=== PATIENT | female | born 1980 | race Caucasian/White ===

== ENCOUNTER 2016-10-14 14:02 | Emergency (ER) | payer OTHER ==
[2016-10-14] MEDS ORDERED: HYDROmorphone HCL 1 MG/ML SYR ONE ×3 (14:36→16:59)
[2016-10-14] MEDS ORDERED: ONDANSETRON HCL 4 MG/2 ML VIAL ONE (14:37)
[2016-10-14 15:07] LABS: BASOPHIL# 0.1 X 10^3uL (0.0-0.1); BASOPHILS 1.2 % (0.0-2.0); EOSINOPHILS 2.9 % (0.0-6.0); EOSINOPHILS# 0.2 X 10^3uL (0.0-0.4); HEMATOCRIT 36.3 % (36.0-48.0); HEMOGLOBIN 11.8 g/dL (12.0-16.0); LYMPHOCYTES 40.3 % (20.0-40.0); LYMPHOCYTES# 2.2 X 10^3uL (0.8-3.8); MEAN CELL VOLUME 81.3 fL (84.0-102.0); MEAN CORPUS. HGB CONCENTRATION 32.4 g/dL (32.0-36.0); MEAN CORPUSCULAR HEMOGLOBIN 26.4 pg (29.0-35.0); MEAN PLATELET VOLUME 6.6 fL (7.4-10.4); MONOCYTES 5.9 % (2.0-10.0); MONOCYTES# 0.3 X 10^3uL (0.2-1.0); NEUTROPHILS 49.7 % (54.0-75.0); NEUTROPHILS# 2.8 X 10^3uL (2.6-6.7); PLATELET COUNT 450 X 10^3uL (130-440); RED BLOOD COUNT 4.46 X 10^6uL (4.20-6.10); RED CELL DISTRIBUTION WIDTH 14.3 % (11.5-14.5); WHITE BLOOD COUNT 5.6 X 10^3uL (3.9-10.7)
[2016-10-14 15:18] LABS: ALKALINE PHOSPHATASE 83 U/L (38-126); ALT 37 U/L (9-52); AST 26 U/L (14-36); BILIRUBIN, DIRECT 0.3 mg/dL (0.0-0.4); BILIRUBIN, TOTAL 0.5 mg/dL (0.2-1.3); BLOOD UREA NITROGEN 11 mg/dL (7-17); CALCIUM 8.9 mg/dL (8.4-10.2); CHLORIDE 99 mmol/L (98-107); CREATININE 0.6 mg/dL (0.5-1.0); EST GLOMERULAR FILTRATION RATE > 60 mL/min; LIPASE 32 U/L (23-300); POTASSIUM 3.9 mmol/L (3.5-5.1); SODIUM 137 mmol/L (137-145); TOTAL PROTEIN 7.2 g/dL (6.3-8.2)
[2016-10-14 15:32] LABS: GLUCOSE 259 mg/dL (70-100)
[2016-10-14 15:52] LABS: MAGNESIUM 1.7 mg/dL (1.6-2.3)
--- NOTE | 2016-10-14 18:22 | ER PHYSICIAN DOCUMENTATION ---
Physician Documentation [facility] Name:Ximena Frank Age:36 yrs Sex:Female :1980 Arrival Date:10/14/2016 Time:14:02 Bed4 Private MD:Bertrand Yang ED, John Disposition: 10/14/16 15:44 Discharged to Home/Self Care. Impression: Abdominal Pain, Epigastric, Dehydration. - Condition is Good. - Discharge Instructions: ABDOMINAL PAIN, Unknown Cause, (Female). - Medical Reconciliation form form. - Follow up: Bertrand Yang MD; When: 4- 6 days; Reason: Continuance of care. - Problem is new. - Symptoms have improved. HPI: 10/14 15:00 This 36 yrs old Female presents to ER via Private Vehicle with complaints of jm Abdominal Pain, High Blood Sugar. 15:00 The patient presents with abdominal pain in the epigastric area. The patient has jm experienced similar episodes in the past. 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 Humalog Sub-Q 2. [place] Oral 3. tujeo 4. Flexeril Oral 5. Vitamin D Oral - PMHx: DIABETES - IDDM; connective tissue disease; Abdominal Pain, Periumbilical (September 17, 2016); Dehydration (September 17, 2016); Hyperglycemia (September 17, 2016); Hypomagnesemia (October 03, 2016); - PSHx: TONSILLECTOMY; APPENDECTOMY; HERNIA REPAIR; - Tetanus: < 10 years. - Ebola Screening: : Patient negative for fever greater than or equal to 101.5 degrees Fahrenheit, and additional compatible Ebola Virus Disease symptoms. Patient denies exposure to infectious person. Patient denies travel to an Ebola-affected area in the 21 days before illness onset. No symptoms or risks identified at this time. . - Immunization history: Pneumococcal vaccine is up to date, Flu Vaccine < 1 year. - Social history: Smoking status: Patient states was never smoker of tobacco. Patient/guardian denies using alcohol, marijuana. ROS: 15:00 Abdomen/GI: Positive for abdominal pain, nausea, vomiting. jm 15:00 Neuro: Negative for dizziness, weakness. Exam: 15:00 Constitutional: The patient appears alert, awake, comfortable. jm 15:00 Respiratory: Respirations: normal, Breath sounds: are normal. 15:00 Abdomen/GI: Bowel sounds: normal, Palpation: mild abdominal tenderness, in the epigastric area. 15:00 Neuro: Mentation: is normal, Memory: is normal. 15:00 Psych: Behavior/mood is pleasant, cooperative, Affect is calm. Vital Signs: 14:00 BP 111 / 61; Pulse 60; Resp 18; Temp 97.6; Pulse Ox 88% on R/A; Weight 61.23 kg; Height sj 5 ft. 1 in. (154.94 cm); Pain 9/10; 14:30 BP 123 / 83; Pulse 76; Pulse Ox 95% on 2 lpm NC; sj 15:00 BP 107 / 75; Pulse 75; Pulse Ox 96% on 2 lpm NC; sj 15:30 BP 105 / 65; Pulse 71; Pulse Ox 92% on 2 lpm NC; Pain 8/10; sj 16:12 Pain 8/10; sj 16:30 BP 100 / 56; Pulse 75; Pulse Ox 100% on 2 lpm NC; sj 17:30 BP 108 / 59; Pulse 70; Pulse Ox 91% on R/A; Pain 4/10; sj 14:00 Body Mass Index 25.51 (61.23 kg, 154.94 cm) MDM: 14:11 Patient medically screened. 15:00 Differential diagnosis: non-specific abd pain. Data reviewed: vital signs, nurses notes, old medical records, lab test result(s), and as a result, I will discharge patient. Counseling: I had a detailed discussion with the patient and/or guardian regarding: the historical points, exam findings, and any diagnostic results supporting the discharge/admit diagnosis, the need for outpatient follow up, with the patient's primary care provider. 10/14 15:10 Order name: CBC AUTO DIF, MDIF/RMOR IF IND; Complete Time: 18:44 EDMS 10/14 15:25 Order name: INFLUENZA A/B; Complete Time: 15:26 EDMS 10/14 15:33 Order name: BASIC METABOLIC PANEL; Complete Time: 18:44 EDMS 10/14 15:33 Order name: HEPATIC PANEL; Complete Time: 18:44 EDMS 10/14 15:33 Order name: LIPASE; Complete Time: 18:44 EDMS 10/14 15:55 Order name: MAGNESIUM; Complete Time: 18:44 EDMS 02 14:12 Order name: NPO; Complete Time: 15:03 Dispensed Medications: 14:50 Drug: NS 0.9% 1000 ml; Route: IV; Rate: bolus; Site: left subclavian; sj 16:13 Follow up: IV Status: Completed infusion; IV Intake: 1000ml sj 14:51 Drug: Dilaudid 1 mg; Route: IVP; Site: left subclavian; sj 16:12 Follow up: Pain 8/10 Adult; Response: Pain is decreased sj 14:53 Drug: Zofran 4 mg; Route: IVP; Infused Over: 2 mins; Site: left subclavian; sj 16:12 Follow up: Response: Nausea unchanged sj 14:55 Drug: Phenergan 12.5 mg; Route: IVP; Site: left subclavian; sj 16:12 Follow up: Response: Nausea unchanged sj 16:00 Drug: Dilaudid 1 mg; Route: IVP; Site: left subclavian; sj 16:59 Follow up: Response: Pain is unchanged, physician notified sj 16:02 Drug: Phenergan 12.5 mg; Route: IVP; Site: left subclavian; sj 16:59 Follow up: Response: Nausea is decreased sj 16:11 Drug: NS 0.9% 1000 ml; Route: IV; Rate: bolus; Site: left subclavian; sj 17:40 Follow up: IV Status: Completed infusion; IV Intake: 1000ml sj 16:55 Drug: Dilaudid 1 mg; Route: IVP; Site: left subclavian; sj 17:40 Follow up: Response: Pain is decreased Point of Care Testing: Blood Glucose: 14:30 Blood Glucose: 253 mg/dL; sj Urine Dip: 18:17 pH: 5.5; ; Specific [place]: 1.010; Ketones: Negative; Glucose: Negative; Protein: sj Negative; Leukocytes: Negative; Nitrite: Negative ; Blood: Negative; Bilirubin: Negative ; Urobilinogen: Normal Ranges: Critical Glucose Levels:Adult <50 mg/dl or >400 mg/dl <40 mg/dl or >180 mg/dl Signatures: Jason Matthews MD MD jm Janzen, Sarah sj
--- NOTE | 2016-10-14 18:22 | ER NURSING DOCUMENTATION ---
Nurse's Notes [facility] Name:Ximena Frank Age:36 yrs Sex:Female :1980 Arrival Date:10/14/2016 Time:14:02 Bed4 Private MD:Bertrand Yang Diagnosis:Abdominal Pain, Epigastric;Dehydration Presentation: 10/14 14:00 Notified ED Physician of patient's arrival and CC Byron Conner notified. sj 14:23 Acuity: SUMI 3 sj 15:03 Presenting complaint: Patient states: feeling ill for several days, tachycardic - took sj metoprolol, blood sugars 300's yesterday, 253 today. Feeling dizzy , severe epigastric pain, low grade fever in 100's, nausea when attempting to drink, dry lingering cough, poor appetite. Exposed to family with flu, denies muscle aches. 15:08 Transition of care: Home. Risk considerations: patient denies pain radiation to back or sj syncopal episode. 15:08 Method Of Arrival: Private Vehicle sj Triage Assessment: 15:14 General: Appears uncomfortable, Behavior is cooperative, pleasant. Pain: Complains of sj pain in epigastric area Pain currently is 9 out of 10 on a pain scale. Neuro: Level of Consciousness is awake, alert, Oriented to person, place, time, event. Cardiovascular: Capillary refill < 3 seconds. Respiratory: Airway is patent Respiratory effort is even, unlabored, Respiratory pattern is regular. GI: Abdomen is flat, Reports upper abdominal pain, anorexia, intolerance of fluids, intolerance of food, nausea. 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 Humalog Sub-Q 2. [place] Oral 3. tujeo 4. Flexeril Oral 5. Vitamin D Oral - PMHx: DIABETES - IDDM; connective tissue disease; Abdominal Pain, Periumbilical (September 17, 2016); Dehydration (September 17, 2016); Hyperglycemia (September 17, 2016); Hypomagnesemia (October 03, 2016); - PSHx: TONSILLECTOMY; APPENDECTOMY; HERNIA REPAIR; - Tetanus: < 10 years. - Ebola Screening: : Patient negative for fever greater than or equal to 101.5 degrees Fahrenheit, and additional compatible Ebola Virus Disease symptoms. Patient denies exposure to infectious person. Patient denies travel to an Ebola-affected area in the 21 days before illness onset. No symptoms or risks identified at this time. . - Immunization history: Pneumococcal vaccine is up to date, Flu Vaccine < 1 year. - Social history: Smoking status: Patient states was never smoker of tobacco. Patient/guardian denies using alcohol, marijuana. Screenin:17 Infectious Disease Risk None. Abuse screen: Denies threats or abuse. Denies injuries sj from another. Nutritional screening: No deficits noted. Assessment: 17:40 Reassessment: Patient states symptoms have improved. Vital Signs: 14:00 BP 111 / 61; Pulse 60; Resp 18; Temp 97.6; Pulse Ox 88% on R/A; Weight 61.23 kg; Height 5 ft. 1 in. (154.94 cm); Pain 9/10; 14:30 BP 123 / 83; Pulse 76; Pulse Ox 95% on 2 lpm NC; sj 15:00 BP 107 / 75; Pulse 75; Pulse Ox 96% on 2 lpm NC; sj 15:30 BP 105 / 65; Pulse 71; Pulse Ox 92% on 2 lpm NC; Pain 8/10; sj 16:12 Pain 8/10; sj 16:30 BP 100 / 56; Pulse 75; Pulse Ox 100% on 2 lpm NC; sj 17:30 BP 108 / 59; Pulse 70; Pulse Ox 91% on R/A; Pain 4/10; sj 14:00 Body Mass Index 25.51 (61.23 kg, 154.94 cm) ED Course: 14:04 Patient arrived in ED. ama 14:05 Bertrand Yang MD is Private Physician. ama 14:11 Jason Matthews MD is Attending Physician. adrlyn 14:23 Missy Ott is Primary Nurse. 14:23 Triage completed. 15:17 Accessed Port-a-Cath using accessed w/ # 20 Munguia needle, sterile technique, per hospital protocol. Oxygen Oxygen administration via nasal cannula @ 2L/min. 15:17 Valuables Given to family. Patient has correct armband on for positive identification. sj Placed in gown. Bed in low position. Call light in reach. Side rails up X2. 15:44 Bertrand Yang MD is Referral Physician. 17:40 Discontinued IV bleeding controlled, pressure dressing applied, No redness/swelling at sj site. flushed with 10ml NS and 300 units heparin before port untapped. Administered Medications: 14:50 Drug: NS 0.9% 1000 ml; Route: IV; Rate: bolus; Site: left subclavian; sj 16:13 Follow up: IV Status: Completed infusion; IV Intake: 1000ml sj 14:51 Drug: Dilaudid 1 mg; Route: IVP; Site: left subclavian; sj 16:12 Follow up: Pain 8/10 Adult; Response: Pain is decreased sj 14:53 Drug: Zofran 4 mg; Route: IVP; Infused Over: 2 mins; Site: left subclavian; sj 16:12 Follow up: Response: Nausea unchanged sj 14:55 Drug: Phenergan 12.5 mg; Route: IVP; Site: left subclavian; sj 16:12 Follow up: Response: Nausea unchanged sj 16:00 Drug: Dilaudid 1 mg; Route: IVP; Site: left subclavian; sj 16:59 Follow up: Response: Pain is unchanged, physician notified sj 16:02 Drug: Phenergan 12.5 mg; Route: IVP; Site: left subclavian; sj 16:59 Follow up: Response: Nausea is decreased sj 16:11 Drug: NS 0.9% 1000 ml; Route: IV; Rate: bolus; Site: left subclavian; sj 17:40 Follow up: IV Status: Completed infusion; IV Intake: 1000ml sj 16:55 Drug: Dilaudid 1 mg; Route: IVP; Site: left subclavian; sj 17:40 Follow up: Response: Pain is decreased sj Point of Care Testing: Blood Glucose: 14:30 Blood Glucose: 253 mg/dL; sj Urine Dip: 18:17 pH: 5.5; ; Specific [place]: 1.010; Ketones: Negative; Glucose: Negative; Protein: sj Negative; Leukocytes: Negative; Nitrite: Negative ; Blood: Negative; Bilirubin: Negative ; Urobilinogen: Normal Ranges: Intake: 16:13 IV: 1000ml; Total: 1000ml. sj 17:40 IV: 1000ml; Total: 2000ml. Outcome: 15:44 Discharge ordered by . darlyn 17:45 Discharged to home 17:45 Condition: improved 17:45 Instructed on discharge instructions, follow up and referral plans. Demonstrated understanding of instructions. 18:22 Patient left the ED. 10/15 10:21 Discharge F/U Call: Unable to reach: no answer nf Signatures: Lyn Matthews RN RN Jason Sky MD MD jm Averdick, Andrew, Reg Reg Missy Zafar
== END 2016-10-14 18:22 | disposition home or self-care (01) ==
LOC: ER 14:02
DX: R10.13 Epigastric pain (principal); E86.0 Dehydration; M35.8 Other specified systemic involvement of connective tissue; E10.65 Type 1 diabetes mellitus with hyperglycemia; R11.2 Nausea with vomiting, unspecified
CPT/HCPCS: 80048; 80076; 83690; 83735; 85025; 87449; 96361; 96374; 96375; 96376; 99284; J1170; J1642; J2405; J2550

== ENCOUNTER 2016-11-13 20:05 | Emergency (ER) | payer OTHER ==
[2016-11-13 20:58] LABS: BASOPHIL# 0.1 X 10^3uL (0.0-0.1); BASOPHILS 1.7 % (0.0-2.0); EOSINOPHILS 5.2 % (0.0-6.0); EOSINOPHILS# 0.2 X 10^3uL (0.0-0.4); HEMOGLOBIN 11.1 g/dL (12.0-16.0); LYMPHOCYTES 38.5 % (20.0-40.0); LYMPHOCYTES# 1.5 X 10^3uL (0.8-3.8); MEAN CELL VOLUME 81.2 fL (80.0-100.0); MEAN CORPUS. HGB CONCENTRATION 31.7 g/dL (32.0-36.0); MEAN CORPUSCULAR HEMOGLOBIN 25.8 pg (29.0-35.0); MEAN PLATELET VOLUME 6.9 fL (7.4-10.4); MONOCYTES 6.7 % (2.0-10.0); MONOCYTES# 0.3 X 10^3uL (0.2-1.0); NEUTROPHILS 47.9 % (54.0-75.0); NEUTROPHILS# 1.9 X 10^3uL (2.6-6.7); PLATELET COUNT 346 X 10^3uL (130-440); RED BLOOD COUNT 4.32 X 10^6uL (4.20-6.10); RED CELL DISTRIBUTION WIDTH 15.4 % (11.5-14.5)
[2016-11-13] MEDS ORDERED: HYDROmorphone HCL 1 MG/ML SYR ONE ×3 (21:02→23:24)
[2016-11-13 21:10] LABS: BLOOD UREA NITROGEN 7 mg/dL (7-17); CALCIUM 8.7 mg/dL (8.4-10.2); CHLORIDE 99 mmol/L (98-107); CREATININE 0.5 mg/dL (0.5-1.0); EST GLOMERULAR FILTRATION RATE > 60 mL/min; POTASSIUM 4.3 mmol/L (3.5-5.1); SODIUM 133 mmol/L (137-145)
[2016-11-13 21:12] LABS: GLUCOSE 297 mg/dL (70-100)
--- NOTE | 2016-11-13 23:43 | ER NURSING DOCUMENTATION ---
Nurse's Notes [facility] Name:Ximena Frank Age:36 yrs Sex:Female :1980 Arrival Date:11/13/2016 Time:20:05 Bed3 Private MD:Bertrand Yang Diagnosis:Abdominal Pain, Epigastric Presentation: 11/13 20:20 Presenting complaint: Patient states: Dizzy, nausea, fatigue, and chronic abd pain rs flare. FSBS at home was 300. Took long lasting insulin (Toujeo) but has not used Humalog. Took one dose of Phenergan this am. She has not had an episode of DKA since April 2016. 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 Transition of care: patient was not received from another setting of care. 20:20 Acuity: SUMI 3 rs 20:20 Method Of Arrival: Private Vehicle rs Triage Assessment: 20:30 General: Appears in no apparent distress, well developed, well nourished, well groomed, rs Behavior is cooperative, pleasant, Reports fatigue for 0-12 hours, Denies fever, chills. Pain: Complains of pain in chronic abdominal pain has flared up tonoc. No change in location or character. Neuro: No deficits noted. Level of Consciousness is awake, alert, Oriented to person, place, time, event, [place] Cont[employer] Atmosp[employer] Furnace are equal bilaterally Moves all extremities. Gait is steady, Speech is normal. Cardiovascular: No deficits noted. Capillary refill < 3 seconds Pulses are 3+ in left radial artery Chest pain is denied. Respiratory: No deficits noted. Respiratory effort is even, unlabored, Respiratory pattern is regular, symmetrical, Breath sounds are clear bilaterally. GI: Abdomen is non- distended Bowel sounds present X 4 quads. Abd is soft X 4 quads Abdomen is tender to palpation in right upper quadrant and right lower quadrant. Derm: No deficits noted. Skin is intact, is healthy with good turgor, Skin is pink, warm & dry. Skin temperature is warm. Musculoskeletal: No deficits noted. Circulation, motion, and sensation intact Capillary refill < 3 seconds. Historical: - Allergies: Mobic; Toradol; Cipro PO; Ceftin; Tramadol HCl; Ativan; Lactulose; Ceftriaxone Sodium; hydroxychloroquine sulfate; montelukast sodium; Fluconazole; QUINACRINE; mycophenolate mofetil; meloxicam; SILVER; Prednisone; - Home Meds: 1. Humalog Sub-Q 2. [place] Oral 3. toujeo insulin 4. Flexeril Oral 5. Vitamin D Oral - PMHx: DIABETES - IDDM; connective tissue disease; Abdominal Pain, Periumbilical (September 17, 2016); Dehydration (September 17, 2016); Hyperglycemia (September 17, 2016); Hypomagnesemia (October 03, 2016); Abdominal Pain, Epigastric (October 14, 2016); Dehydration (October 14, 2016); Dehydration (October 03, 2016); Hypomagnesemia (October 03, 2016); Abdominal Pain, Periumbilical (October 03, 2016); Vomiting - Dehydration (September 02, 2016); Diabetes Mellitus, Type 1 with Hyperglycemia (September 02, 2016); Abdominal Pain, Unspecified (September 02, 2016); Cellulitis of Face (April 02, 2016); CHRONIC PAIN; - PSHx: TONSILLECTOMY; APPENDECTOMY; HERNIA REPAIR; - Tetanus: unknown. - Ebola Screening: : Patient negative for fever greater than or equal to 101.5 degrees Fahrenheit, and additional compatible Ebola Virus Disease symptoms. Patient denies exposure to infectious person. Patient denies travel to an Ebola-affected area in the 21 days before illness onset. No symptoms or risks identified at this time. . - Immunization history: Unable to Obtain. - Social history: Smoking status: Patient states was never smoker of tobacco. Patient/guardian denies using alcohol. Screenin:57 Infectious Disease Risk None. Abuse screen: Denies threats or abuse. Nutritional rs screening: No deficits noted. Assessment: 21:57 See Triage Assessment done by same RN. rs Vital Signs: 20:30 BP 131 / 87; Pulse 99; Resp 22; Pulse Ox 94% on R/A; Pain 7/10; rs 21:00 BP 108 / 74; Pulse 75; Resp 20; Pulse Ox 95% on 2 lpm NC; Pain 6/10; rs 23:41 BP 122 / 63; Pulse 69; Resp 15; Temp 98.4; Pulse Ox 97% on R/A; Pain 2/10; mk4 ED Course: 20:06 Patient arrived in ED. em2 20:06 Bertrand Yang MD is Private Physician. em2 20:30 Notified ED Physician of patient's arrival and chief complaint. Bed in low position rs Call Light in Reach Gowned HOB Elevated Side rails up x1. Family accompanied patient. 20:33 Jason Matthews MD is Attending Physician. darlyn 21:23 Triage completed. rs 21:57 Valuables Remains with patient. Pulse Ox - RN Monitoring Only. Door closed. Noise rs minimized. Lights dimmed. 21:58 Accessed Port-a-Cath using accessed w/ # 20 Munguia needle, Clean & dry. Flushes easily. rs 22:03 Resting quietly. rs 22:54 Bertrand Yang MD is Referral Physician. darlyn Administered Medications: Completed: NS 0.9% 1000 ml IV at bolus once Completed: NS 0.9% 1000 ml IV at bolus once 20:45 Drug: NS 0.9% 1000 ml; Volume: 1000 ml; Route: IV; Rate: bolus; Infused Over: 45 mins; mk4 Site: left subclavian; Delivery: IVPB Tubing; 23:39 Follow up: IV Status: Completed infusion; Infusion discontinued; IV Intake: 1000ml mk4 21:05 Drug: Phenergan 12.5 mg; Route: IVP; Rate: 3 mg/min; Infused Over: 4 mins; Site: left rs subclavian; 21:30 Follow up: Response: Nausea is decreased rs 21:10 Drug: Dilaudid 1 mg; Route: IVP; Rate: 0.25 mg/min; Infused Over: 4 mins; Site: left rs subclavian; 21:30 Follow up: Response: Pain is decreased rs 23:10 Drug: Zofran 8 mg; Route: IVP; Rate: 8 bolus; Infused Over: 2 mins; Site: left mk4 subclavian; 23:10 Drug: Dilaudid 1 mg; Route: IVP; Rate: 1 bolus; Infused Over: 2 mins; Site: left mk4 subclavian; 23:40 Follow up: Response: No adverse reaction; Pain is decreased mk4 23:10 Drug: Phenergan 12.5 mg; Route: IVP; Rate: 12.5 bolus; Infused Over: 2 mins; Site: left mk4 subclavian; 23:40 Follow up: Response: No adverse reaction; Nausea is decreased mk4 23:10 Drug: Phenergan 12.5 mg; Route: IVP; Rate: 12.5 bolus; Infused Over: 2 mins; Site: left mk4 subclavian; 23:41 Follow up: Response: No adverse reaction; Nausea is decreased mk4 23:30 Drug: Dilaudid 1 mg; Route: IVP; Rate: 1 bolus; Infused Over: 2 mins; Site: left mk4 subclavian; 23:40 Follow up: Response: No adverse reaction; Pain is decreased mk4 23:39 CANCELLED (Other Intervention Used): Zofran 8 mg IVP once over 2 mins 4 Point of Care Testing: Blood Glucose: 20:20 Blood Glucose: 300 mg/dL; rs Ranges: Intake: 23:39 IV: 1000ml; Total: 1000ml. 4 Outcome: 23:04 Discharge ordered by MD. santizo 23:41 Discharged to home [facility] 23:41 Condition: improved 23:41 Discharge Assessment: Patient awake, alert and oriented x 3. No cognitive and/or functional deficits noted. Patient verbalized understanding of disposition instructions. 23:41 Discharge instructions given to patient, Instructed on discharge instructions, follow up and referral plans. Demonstrated understanding of instructions. 23:43 Patient left the ED. 4 Signatures: Chary Jordan RN RN Jason Simeon MD MD jm Meinking-reg, Wiliam 2 Donna Vasquez [facility]
--- NOTE | 2016-11-13 23:43 | ER PHYSICIAN DOCUMENTATION ---
Physician Documentation [facility] Name:Ximena Frank Age:36 yrs Sex:Female :1980 Arrival Date:11/13/2016 Time:20:05 Bed3 Private MD:Bertrand Yang ED, John Disposition: 11/13/16 23:04 Discharged to Home/Self Care. Impression: Abdominal Pain, Epigastric. - Condition is Good. - Discharge Instructions: ABDOMINAL PAIN, Unknown Cause, (Female). - Medical Reconciliation form form. - Follow up: Bertrand Yang MD; When: 2 - 3 days; Reason: Continuance of care. - Problem is new. - Symptoms have improved. HPI: 11/13 20:30 This 36 yrs old Female presents to ER via Private Vehicle with complaints of jm Abdominal Pain. 20:30 The patient presents with abdominal pain. Onset: The symptoms/episode began/occurred jm today. Associated signs and symptoms: Pertinent positives: vomiting. The patient has experienced similar episodes in the past. Historical: - Allergies: Mobic; Toradol; Cipro PO; Ceftin; Tramadol HCl; Ativan; Lactulose; Ceftriaxone Sodium; hydroxychloroquine sulfate; montelukast sodium; Fluconazole; QUINACRINE; mycophenolate mofetil; meloxicam; SILVER; Prednisone; - Home Meds: 1. Humalog Sub-Q 2. [place] Oral 3. toujeo insulin 4. Flexeril Oral 5. Vitamin D Oral - PMHx: DIABETES - IDDM; connective tissue disease; Abdominal Pain, Periumbilical (September 17, 2016); Dehydration (September 17, 2016); Hyperglycemia (September 17, 2016); Hypomagnesemia (October 03, 2016); Abdominal Pain, Epigastric (October 14, 2016); Dehydration (October 14, 2016); Dehydration (October 03, 2016); Hypomagnesemia (October 03, 2016); Abdominal Pain, Periumbilical (October 03, 2016); Vomiting - Dehydration (September 02, 2016); Diabetes Mellitus, Type 1 with Hyperglycemia (September 02, 2016); Abdominal Pain, Unspecified (September 02, 2016); Cellulitis of Face (April 02, 2016); CHRONIC PAIN; - PSHx: TONSILLECTOMY; APPENDECTOMY; HERNIA REPAIR; - Tetanus: unknown. - Ebola Screening: : Patient negative for fever greater than or equal to 101.5 degrees Fahrenheit, and additional compatible Ebola Virus Disease symptoms. Patient denies exposure to infectious person. Patient denies travel to an Ebola-affected area in the 21 days before illness onset. No symptoms or risks identified at this time. . - Immunization history: Unable to Obtain. - Social history: Smoking status: Patient states was never smoker of tobacco. Patient/guardian denies using alcohol. ROS: 11/14 09:25 Constitutional: Negative for fever. Constitutional: Positive for fatigue. Abdomen/GI: Positive for abdominal pain, nausea, vomiting. Neuro: Positive for weakness. Exam: 09:25 Constitutional: The patient appears alert, awake, comfortable. 09:25 Cardiovascular: Rate: normal, Rhythm: regular. 09:25 Respiratory: the patient does not display signs of respiratory distress, Respirations: normal. 09:25 Abdomen/GI: Bowel sounds: normal, Palpation: mild abdominal tenderness, in the epigastric area and umbilical area. Vital Signs: 11/13 20:30 BP 131 / 87; Pulse 99; Resp 22; Pulse Ox 94% on R/A; Pain 7/10; rs 21:00 BP 108 / 74; Pulse 75; Resp 20; Pulse Ox 95% on 2 lpm NC; Pain 6/10; rs 23:41 BP 122 / 63; Pulse 69; Resp 15; Temp 98.4; Pulse Ox 97% on R/A; Pain 2/10; mk4 MDM: 20:33 Patient medically screened. 11/14 09:26 Differential diagnosis: non-specific abd pain. Data reviewed: vital signs, nurses notes, old medical records, lab test result(s), and as a result, I will discharge patient. Counseling: I had a detailed discussion with the patient and/or guardian regarding: the historical points, exam findings, and any diagnostic results supporting the discharge/admit diagnosis, the need for outpatient follow up, with the patient's primary care provider. 11/13 21:02 Order name: CBC AUTO DIF, MDIF/RMOR IF IND; Complete Time: 22:36 EDMS 11/13 21:14 Order name: BASIC METABOLIC PANEL; Complete Time: 22:36 EDNE 11/13 20:38 Order name: Iv Saline Lock; Complete Time: 22:25 11/13 20:38 Order name: Pulse Ox Continuous; Complete Time: 22:25 11/13 20:38 Order name: Accucheck; Complete Time: 22:25 Dispensed Medications: Completed: NS 0.9% 1000 ml IV at bolus once Completed: NS 0.9% 1000 ml IV at bolus once 11/13 20:45 Drug: NS 0.9% 1000 ml; Volume: 1000 ml; Route: IV; Rate: bolus; Infused Over: 45 mins; mk4 Site: left subclavian; Delivery: IVPB Tubing; 23:39 Follow up: IV Status: Completed infusion; Infusion discontinued; IV Intake: 1000ml mk4 21:05 Drug: Phenergan 12.5 mg; Route: IVP; Rate: 3 mg/min; Infused Over: 4 mins; Site: left rs subclavian; 21:30 Follow up: Response: Nausea is decreased rs 21:10 Drug: Dilaudid 1 mg; Route: IVP; Rate: 0.25 mg/min; Infused Over: 4 mins; Site: left rs subclavian; 21:30 Follow up: Response: Pain is decreased rs 23:10 Drug: Zofran 8 mg; Route: IVP; Rate: 8 bolus; Infused Over: 2 mins; Site: left mk4 subclavian; 23:10 Drug: Dilaudid 1 mg; Route: IVP; Rate: 1 bolus; Infused Over: 2 mins; Site: left mk4 subclavian; 23:40 Follow up: Response: No adverse reaction; Pain is decreased mk4 23:10 Drug: Phenergan 12.5 mg; Route: IVP; Rate: 12.5 bolus; Infused Over: 2 mins; Site: left mk4 subclavian; 23:40 Follow up: Response: No adverse reaction; Nausea is decreased mk4 23:10 Drug: Phenergan 12.5 mg; Route: IVP; Rate: 12.5 bolus; Infused Over: 2 mins; Site: left mk4 subclavian; 23:41 Follow up: Response: No adverse reaction; Nausea is decreased mk4 23:30 Drug: Dilaudid 1 mg; Route: IVP; Rate: 1 bolus; Infused Over: 2 mins; Site: left mk4 subclavian; 23:40 Follow up: Response: No adverse reaction; Pain is decreased mk4 23:39 CANCELLED (Other Intervention Used): Zofran 8 mg IVP once over 2 mins mk4 Point of Care Testing: Blood Glucose: 20:20 Blood Glucose: 300 mg/dL; rs Ranges: Critical Glucose Levels:Adult <50 mg/dl or >400 mg/dl <40 mg/dl or >180 mg/dl Signatures: Chary Jordan RN RN rs Meyer, John, MD MD jm King, Melody 4
== END 2016-11-13 23:43 | disposition home or self-care (01) ==
LOC: ER 20:05
DX: E86.0 Dehydration (principal); R10.33 Periumbilical pain; R10.13 Epigastric pain; R11.2 Nausea with vomiting, unspecified; R53.83 Other fatigue; R53.1 Weakness; E10.65 Type 1 diabetes mellitus with hyperglycemia; E10.43 Type 1 diabetes mellitus with diabetic autonomic (poly)neuropathy; M35.8 Other specified systemic involvement of connective tissue; Z79.899 Other long term (current) drug therapy
CPT/HCPCS: 80048; 85025; 96361; 96374; 96375; 96376; 99284; J1170; J1642; J2550

== ENCOUNTER 2016-12-09 21:29 | Emergency (ER) | payer OTHER ==
[2016-12-09 22:00] LABS: BASOPHIL# 0.1 X 10^3uL (0.0-0.1); BASOPHILS 0.8 % (0.0-2.0); EOSINOPHILS 0.4 % (0.0-6.0); HEMATOCRIT 36.6 % (36.0-48.0); LYMPHOCYTES# 2.1 X 10^3uL (0.8-3.8); MEAN CELL VOLUME 81.4 fL (80.0-100.0); MEAN CORPUS. HGB CONCENTRATION 32.8 g/dL (32.0-36.0); MEAN CORPUSCULAR HEMOGLOBIN 26.7 pg (29.0-35.0); MONOCYTES 5.6 % (2.0-10.0); MONOCYTES# 0.4 X 10^3uL (0.2-1.0); NEUTROPHILS 62.2 % (54.0-75.0); NEUTROPHILS# 4.1 X 10^3uL (2.6-6.7); PLATELET COUNT 455 X 10^3uL (130-440); RED CELL DISTRIBUTION WIDTH 14.9 % (11.5-14.5); WHITE BLOOD COUNT 6.7 X 10^3uL (3.9-10.7)
[2016-12-09 22:11] LABS: BLOOD UREA NITROGEN 11 mg/dL (7-17); CALCIUM 9.6 mg/dL (8.4-10.2); CHLORIDE 98 mmol/L (98-107); CREATININE 0.6 mg/dL (0.5-1.0); EST GLOMERULAR FILTRATION RATE > 60 mL/min; SODIUM 132 mmol/L (137-145)
[2016-12-09 22:12] LABS: GLUCOSE 341 mg/dL (70-100)
[2016-12-09] MEDS ORDERED: HYDROmorphone HCL 1 MG/ML SYR ONE ×2 (22:18→23:08)
[2016-12-09] MEDS ORDERED: ONDANSETRON HCL 4 MG/2 ML VIAL ONE (23:08)
[2016-12-10] MEDS ORDERED: HYDROmorphone HCL 1 MG/ML SYR ONE (00:47)
--- NOTE | 2016-12-10 00:55 | ER PHYSICIAN DOCUMENTATION ---
Physician Documentation [facility] Name:Ximena Frank Age:36 yrs Sex:Female :1980 Arrival Date:12/09/2016 Time:21:29 Bed3 Private MD:Bertrand Yang ED, John Disposition: 12/10/16 00:35 Discharged to Home/Self Care. Impression: Vomiting - Dehydration, Abdominal Cramps. - Condition is Good. - Discharge Instructions: VOMITING (7y-Adult). - Medical Reconciliation form form. - Follow up: Bertrand Yang MD; When: 4- 6 days; Reason: Continuance of care. - Problem is new. - Symptoms have improved. HPI: 12/09 22:29 This 36 yrs old Female presents to ER via Private Vehicle with complaints of jm Abd pain n/v. 22:29 The patient presents with abdominal pain in the epigastric area. Onset: The jm symptoms/episode began/occurred today. The symptoms do not radiate. Associated signs and symptoms: Pertinent positives: nausea, vomiting. The symptoms are described as achy, dull. Modifying factors: the symptoms are aggravated by nothing. Severity of pain: in the emergency department the pain is a 8 / 10. The patient has experienced similar episodes in the past, and the symptoms today are exactly the same, to previous flare ups of this nature. . Historical: - Allergies: Mobic; Toradol; Cipro PO; Ceftin; Tramadol HCl; Ativan; Lactulose; Ceftriaxone Sodium; hydroxychloroquine sulfate; montelukast sodium; QUINACRINE; SILVER; Fluconazole; mycophenolate mofetil; meloxicam; Prednisone; - Home Meds: 1. Humalog Sub-Q 2. [place] Oral 3. toujeo insulin 4. Flexeril Oral 5. Vitamin D Oral - PMHx: DIABETES - IDDM; connective tissue disease; Abdominal Pain, Periumbilical (September 17, 2016); Abdominal Pain, Epigastric (October 14, 2016); Dehydration (September 17, 2016); Hyperglycemia (September 17, 2016); Hypomagnesemia (October 03, 2016); CHRONIC PAIN; Abdominal Pain, Epigastric (November 13, 2016); - PSHx: TONSILLECTOMY; APPENDECTOMY; HERNIA REPAIR; - Tetanus: < 10 years. - Ebola Screening: : Patient negative for fever greater than or equal to 101.5 degrees Fahrenheit, and additional compatible Ebola Virus Disease symptoms. - Immunization history: Flu Vaccine < 1 year. - Social history: Smoking status: Patient states was never smoker of tobacco. ROS: 22:34 Constitutional: Negative for fatigue, fever. 22:34 ENT: Positive for hoarseness. 22:34 Abdomen/GI: Positive for abdominal pain, nausea, vomiting. 22:34 Psych: Negative for anxiety, depression. Exam: 22:35 Constitutional: The patient appears alert, awake. 22:35 Cardiovascular: Rate: tachycardic, Rhythm: regular. 22:35 Respiratory: the patient does not display signs of respiratory distress, Breath sounds: are normal. 22:35 Abdomen/GI: Bowel sounds: normal, Palpation: mild abdominal tenderness, in the epigastric area and umbilical area. Vital Signs: 21:30 BP 127 / 84; Pulse 91; Resp 17; Temp 98.3(O); Pulse Ox 95% on R/A; Weight 58.97 kg; rh Height 5 ft. 2 in. (157.48 cm); 23:30 BP 123 / 82; Pulse 86; Resp 15; Pulse Ox 97% on R/A; rh 21:30 Body Mass Index 23.78 (58.97 kg, 157.48 cm) rh MDM: 21:51 Patient medically screened. 22:35 Differential diagnosis: non-specific abd pain. Data reviewed: vital signs, nurses notes, old medical records, lab test result(s), and as a result, I will discharge patient. Counseling: I had a detailed discussion with the patient and/or guardian regarding: the historical points, exam findings, and any diagnostic results supporting the discharge/admit diagnosis, lab results, the need for outpatient follow up, with the patient's primary care provider, a neurologist. Medication response: The patient's symptoms have improved, Dilaudid. 12/09 22:02 Order name: CBC AUTO DIF, MDIF/RMOR IF IND; Complete Time: 22:21 EDAL 12/09 22:12 Order name: BASIC METABOLIC PANEL; Complete Time: 22:21 EDAL 12/09 21:53 Order name: Pulse Ox Continuous; Complete Time: 21:54 12/09 21:53 Order name: Iv Saline Lock; Complete Time: 21:54 darlyn 12/09 21:53 Order name: Accucheck; Complete Time: 21:54 Dispensed Medications: 21:54 Drug: NS 0.9% 1000 ml; Route: IV; Rate: bolus; Site: left subclavian; rh 23:15 Follow up: IV Status: Completed infusion; IV Intake: 1000ml rh 22:01 Drug: Phenergan 12.5 mg; {Note: ADMISTERED INTO PORT.} Route: IVP; Site: left rh subclavian; 23:00 Follow up: Response: Nausea is decreased rh 22:10 Drug: Dilaudid 1 mg; Route: IVP; Site: left subclavian; rh 23:01 Follow up: Response: Pain is decreased rh 23:00 Drug: Zofran 4 mg; Route: IVP; Infused Over: 2 mins; Site: left subclavian; rh 23:52 Follow up: Response: Nausea is decreased rh 23:00 Drug: Dilaudid 1 mg; Route: IVP; Site: left antecubital; rh 23:52 Follow up: Response: Pain is decreased rh 23:16 Drug: NS 0.9% 1000 ml; Route: IV; Rate: bolus; Site: left subclavian; rh 12/10 00:45 Follow up: IV Status: Completed infusion; IV Intake: 1000ml rh 00:35 Drug: Phenergan 12.5 mg; Route: IVP; Site: left subclavian; rh 00:47 Follow up: Response: Nausea is decreased rh 00:35 Drug: Dilaudid 1 mg; Route: IVP; Site: left subclavian; rh 00:47 Follow up: Response: Pain is decreased rh 00:49 Drug: heparin Flush 500 units; Route: IVP; Site: left subclavian; rh 00:49 Follow up: Response: No adverse reaction rh Signatures: Jason Matthews MD MD jm Hofsess, Rachel rh
--- NOTE | 2016-12-10 00:55 | ER NURSING DOCUMENTATION ---
Nurse's Notes [facility] Name:Ximena Frank Age:36 yrs Sex:Female :1980 Arrival Date:12/09/2016 Time:21:29 Bed3 Private MD:Bertrand Yang Diagnosis:Vomiting - Dehydration;Abdominal Cramps Presentation: 12/09 21:30 Acuity: SUMI 3 21:54 Presenting complaint: Patient states: Pt has been feeling tired and run down since Tuesday. Today she became nauseated and wasn't able to stay hydrated. Transition of care: Home. 21:54 Method Of Arrival: Private Vehicle Triage Assessment: 21:56 General: Appears in no apparent distress, Behavior is cooperative. Pain: Denies pain. rh EENT: Oral mucosa is dry. Neuro: Level of Consciousness is awake, alert, obeys commands. Cardiovascular: Capillary refill < 3 seconds. Respiratory: Airway is patent. GI: Abdomen is non- distended Bowel sounds present X 4 quads. Abd is soft and non tender Reports anorexia, nausea, vomiting, since Tuesday. : No deficits noted. Derm: Skin is intact, is healthy with good turgor, Skin is pink, warm & dry. Historical: - Allergies: Mobic; Toradol; Cipro PO; Ceftin; Tramadol HCl; Ativan; Lactulose; Ceftriaxone Sodium; hydroxychloroquine sulfate; montelukast sodium; QUINACRINE; SILVER; Fluconazole; mycophenolate mofetil; meloxicam; Prednisone; - Home Meds: 1. Humalog Sub-Q 2. [place] Oral 3. toujeo insulin 4. Flexeril Oral 5. Vitamin D Oral - PMHx: DIABETES - IDDM; connective tissue disease; Abdominal Pain, Periumbilical (September 17, 2016); Abdominal Pain, Epigastric (October 14, 2016); Dehydration (September 17, 2016); Hyperglycemia (September 17, 2016); Hypomagnesemia (October 03, 2016); CHRONIC PAIN; Abdominal Pain, Epigastric (November 13, 2016); - PSHx: TONSILLECTOMY; APPENDECTOMY; HERNIA REPAIR; - Tetanus: < 10 years. - Ebola Screening: : Patient negative for fever greater than or equal to 101.5 degrees Fahrenheit, and additional compatible Ebola Virus Disease symptoms. - Immunization history: Flu Vaccine < 1 year. - Social history: Smoking status: Patient states was never smoker of tobacco. Screenin:58 Infectious Disease Risk None. Abuse screen: Denies threats or abuse. Denies injuries rh from another. Nutritional screening: No deficits noted. Assessment: 21:58 See Triage Assessment done by same RN. rh Vital Signs: 21:30 BP 127 / 84; Pulse 91; Resp 17; Temp 98.3(O); Pulse Ox 95% on R/A; Weight 58.97 kg; rh Height 5 ft. 2 in. (157.48 cm); 23:30 BP 123 / 82; Pulse 86; Resp 15; Pulse Ox 97% on R/A; rh 21:30 Body Mass Index 23.78 (58.97 kg, 157.48 cm) rh ED Course: 21:30 Patient arrived in ED. [facility] 21:30 Trisha Guerra is Primary Nurse. 21:30 Bertrand Yang MD is Private Physician. [facility] 21:30 Notified ED Physician of patient's arrival and chief complaint. Dr. Matthews notified. rh 21:31 Triage completed. rh 21:45 Accessed Medi-Port and blood collected. using accessed w/ # 20 [place] needle, sterile rh technique, per hospital protocol. Clean & dry. Dressing intact. Flushes easily. 21:51 Jason Matthews MD is Attending Physician. 21:58 Valuables Remains with patient Patient has correct armband on for positive rh identification. Placed in gown. Bed in low position. Call light in reach. Side rails up X 1. 07 00:33 Bertrand Yang MD is Referral Physician. darlyn Administered Medications: 04 21:54 Drug: NS 0.9% 1000 ml; Route: IV; Rate: bolus; Site: left subclavian; rh 23:15 Follow up: IV Status: Completed infusion; IV Intake: 1000ml rh 22:01 Drug: Phenergan 12.5 mg; {Note: ADMISTERED INTO PORT.} Route: IVP; Site: left rh subclavian; 23:00 Follow up: Response: Nausea is decreased rh 22:10 Drug: Dilaudid 1 mg; Route: IVP; Site: left subclavian; rh 23:01 Follow up: Response: Pain is decreased rh 23:00 Drug: Zofran 4 mg; Route: IVP; Infused Over: 2 mins; Site: left subclavian; rh 23:52 Follow up: Response: Nausea is decreased rh 23:00 Drug: Dilaudid 1 mg; Route: IVP; Site: left antecubital; rh 23:52 Follow up: Response: Pain is decreased rh 23:16 Drug: NS 0.9% 1000 ml; Route: IV; Rate: bolus; Site: left subclavian; rh 0407 00:45 Follow up: IV Status: Completed infusion; IV Intake: 1000ml rh 00:35 Drug: Phenergan 12.5 mg; Route: IVP; Site: left subclavian; rh 00:47 Follow up: Response: Nausea is decreased rh 00:35 Drug: Dilaudid 1 mg; Route: IVP; Site: left subclavian; rh 00:47 Follow up: Response: Pain is decreased rh 00:49 Drug: heparin Flush 500 units; Route: IVP; Site: left subclavian; rh 00:49 Follow up: Response: No adverse reaction rh Intake: 04 23:15 IV: 1000ml; Total: 1000ml. rh 04 00:45 IV: 1000ml; Total: 2000ml. rh Outcome: 00:35 Discharge ordered by . darlyn 00:54 Discharged to home ambulatory, with significant other. rh 00:54 Condition: improved 00:54 Discharge Assessment: Patient awake, alert and oriented x 3. No cognitive and/or functional deficits noted. Patient verbalized understanding of disposition instructions. 00:54 Discharge instructions given to patient, significant other, Instructed on discharge instructions, follow up and referral plans. Demonstrated understanding of instructions. 00:54 IV D/Filipe 00:54 Patient left the ED. rh Signatures: Jason Matthews MD MD jm Hofsess, Rachel Carlee Lara
== END 2016-12-10 00:54 | disposition home or self-care (01) ==
LOC: ER 21:29
DX: E86.0 Dehydration (principal); R11.2 Nausea with vomiting, unspecified; R10.13 Epigastric pain; R10.33 Periumbilical pain; E10.9 Type 1 diabetes mellitus without complications; M35.8 Other specified systemic involvement of connective tissue; Z79.899 Other long term (current) drug therapy
CPT/HCPCS: 80048; 85025; 96361; 96374; 96375; 96376; 99284; J1170; J1642; J2405; J2550

== ENCOUNTER 2017-01-19 21:03 | Emergency (ER) | payer OTHER ==
[2017-01-19] MEDS ORDERED: NORMAL SALINE 10 ML VIAL ONE (21:32)
[2017-01-19 21:46] LABS: BASOPHILS 0.9 % (0.0-2.0); EOSINOPHILS 2.8 % (0.0-6.0); EOSINOPHILS# 0.1 X 10^3uL (0.0-0.4); HEMATOCRIT 33.6 % (36.0-48.0); HEMOGLOBIN 11.4 g/dL (12.0-16.0); LYMPHOCYTES 52.3 % (20.0-40.0); LYMPHOCYTES# 2.4 X 10^3uL (0.8-3.8); MEAN CELL VOLUME 80.8 fL (80.0-100.0); MEAN CORPUS. HGB CONCENTRATION 33.9 g/dL (32.0-36.0); MEAN CORPUSCULAR HEMOGLOBIN 27.4 pg (29.0-35.0); MONOCYTES 7.4 % (2.0-10.0); MONOCYTES# 0.3 X 10^3uL (0.2-1.0); NEUTROPHILS 36.6 % (54.0-75.0); NEUTROPHILS# 1.6 X 10^3uL (2.6-6.7); RED BLOOD COUNT 4.16 X 10^6uL (4.20-6.10); RED CELL DISTRIBUTION WIDTH 13.5 % (11.5-14.5); WHITE BLOOD COUNT 4.4 X 10^3uL (3.9-10.7)
[2017-01-19] MEDS ORDERED: HYDROmorphone HCL 1 MG/ML SYR ONE ×3 (21:46→23:57)
[2017-01-19] MEDS ORDERED: ONDANSETRON HCL 4 MG/2 ML VIAL ONE ×2 (21:46→23:58)
[2017-01-19 21:48] LABS: BLOOD UREA NITROGEN 4 mg/dL (7-17); CALCIUM 8.5 mg/dL (8.4-10.2); CHLORIDE 98 mmol/L (98-107); CREATININE 0.5 mg/dL (0.5-1.0); EST GLOMERULAR FILTRATION RATE > 60 mL/min; GLUCOSE 281 mg/dL (70-100); POTASSIUM 3.2 mmol/L (3.5-5.1); SODIUM 136 mmol/L (137-145)
[2017-01-19 21:50] LABS: PLATELET COUNT 473 X 10^3uL (130-440)
[2017-01-19] MEDS ORDERED: POTASSIUM EFF 25 MEQ TABLET ONE (23:10)
--- NOTE | 2017-01-20 00:21 | ER PHYSICIAN DOCUMENTATION ---
Physician Documentation [facility] Name:Ximena Frank Age:36 yrs Sex:Female :1980 Arrival Date:01/19/2017 Time:21:03 Bed3 Private MD:Bertrand Yang EDmalikaJason Disposition: 01/19/17 23:05 Discharged to Home/Self Care. Impression: Abdominal Pain, Generalized, Dehydration. - Condition is Good. - Discharge Instructions: Abdomen - ABDOMINAL PAIN, Unknown Cause, (Female). - Medical Reconciliation form form. - Follow up: Bertrand Yang MD; When: recheck [place] ; Reason: Recheck today's complaints. - Problem is chronic. - Symptoms have improved. HPI: 01/19 21:30 This 36 yrs old Female presents to ER via Walk In with complaints of jm Dehydration. 21:30 The patient presents with abdominal pain in the epigastric area. Onset: The jm symptoms/episode began/occurred today. Associated signs and symptoms: Pertinent positives: vomiting. The patient has not experienced similar symptoms in the past. Pt here w typical sx. . Historical: - Allergies: Ampicillin; Toradol; Tramadol HCl; Ceftin; Plaquenil; Mobic; Lactulose; - Home Meds: 1. tujeo 2. Humalog Sub-Q 3. [place]ymb[place] oral 4. [place] Oral 5. metoprolol tartrate Oral - PMHx: Diabetes - IDDM; connective tissue disorder; - PSHx: Appendectomy; Cholecysectomy; port implant; - Tetanus: < 10 years. - Ebola Screening: : Patient denies exposure to infectious person. Patient denies travel to an Ebola-affected area in the 21 days before illness onset. . - Immunization history: Flu Vaccine < 1 year. - Social history: Smoking status: Patient states was never smoker of tobacco. Patient uses alcohol occasionally. - Code Status:: Full code. ROS: 23:00 Abdomen/GI: Positive for abdominal pain, nausea, vomiting. jm 23:00 All other systems are negative. Exam: 23:00 Constitutional: The patient appears alert, awake. jm 23:00 Cardiovascular: Rate: normal, Rhythm: regular. 23:00 Respiratory: the patient does not display signs of respiratory distress, Respirations: normal. 23:00 Abdomen/GI: Bowel sounds: normal, Palpation: moderate abdominal tenderness, in the epigastric area and umbilical area. Vital Signs: 21:08 BP 135 / 93; Pulse 101; Resp 17; Temp 98.6(O); Pulse Ox 93% on R/A; Weight 61.23 kg; rh Height 5 ft. 1 in. (154.94 cm); Pain 0/10; 22:50 BP 117 / 73; Pulse 91; Resp 20; Pulse Ox 94% on 2 lpm NC; Pain 8/10; lb 01/20 00:20 BP 100 / 71; Pulse 79; Resp 15; Pulse Ox 98% on R/A; Pain 6/10; lb 01/19 21:08 Body Mass Index 25.51 (61.23 kg, 154.94 cm) rh MDM: 01/19 21:25 Patient medically screened. 01/20 08:06 Differential diagnosis: non-specific abd pain. Data reviewed: vital signs, nurses notes, old medical records, lab test result(s), and as a result, I will discharge patient. Counseling: I had a detailed discussion with the patient and/or guardian regarding: the historical points, exam findings, and any diagnostic results supporting the discharge/admit diagnosis. Medication response: The patient's symptoms have resolved, Dilaudid. 01/19 21:49 Order name: BASIC METABOLIC PANEL [facility] 01/19 21:50 Order name: CBC AUTO DIF, MDIF/RMOR IF IND [facility] 01/19 22:18 Order name: HCG, SERUM [facility] 01/19 21:27 Order name: Iv Saline Lock; Complete Time: 21:31 01/19 21:27 Order name: Pulse Ox Continuous; Complete Time: 21:32 Dispensed Medications: 01/19 21:43 Drug: NS 0.9% 1000 ml; Route: IV; Rate: bolus; Site: left subclavian; lb 23:49 Follow up: IV Status: Completed infusion; IV Intake: 1000ml lb 21:43 Drug: Phenergan 12.5 mg; Route: IVP; Site: left subclavian; lb 23:16 Follow up: Response: Nausea is decreased lb 21:43 Drug: Dilaudid 1 mg; Route: IVP; Site: left subclavian; lb 23:16 Follow up: Response: Pain is decreased lb 21:43 Drug: Zofran 4 mg; Route: IVP; Infused Over: 2 mins; Site: left subclavian; lb 23:17 Follow up: Response: Nausea is decreased lb 22:49 Drug: NS 0.9% 1000 ml; Route: IV; Rate: bolus; Site: left subclavian; lb 23:49 Follow up: IV Status: Completed infusion; IV Intake: 1000ml lb 22:49 Drug: Phenergan 12.5 mg; Route: IVP; Site: left subclavian; lb 23:17 Follow up: Response: Nausea is decreased lb 22:50 Drug: Dilaudid 1 mg; Route: IVP; Site: left subclavian; lb 23:17 Follow up: Response: Pain is decreased lb 22:58 Drug: Potassium Effervescent Tablet 25 mEq; Route: PO; lb 23:16 Follow up: Response: No change in condition lb 23:48 Drug: Dilaudid 1 mg; Route: IVP; Site: left subclavian; lb 01/20 00:19 Follow up: Response: Pain is decreased lb 01/19 23:48 Drug: Zofran 4 mg; Route: IVP; Infused Over: 2 mins; Site: left subclavian; lb 01/20 00:19 Follow up: Response: Nausea is decreased lb Point of Care Testing: Blood Glucose: 01/19 21:08 Blood Glucose: 337 mg/dL; rh Ranges: Critical Glucose Levels:Adult <50 mg/dl or >400 mg/dl <40 mg/dl or >180 mg/dl Signatures: Jason Matthews MD MD jm Bollock, Lynda lb
--- NOTE | 2017-01-20 00:21 | ER NURSING DOCUMENTATION ---
Nurse's Notes [facility] Name:Ximena Frank Age:36 yrs Sex:Female :1980 Arrival Date:01/19/2017 Time:21:03 Bed3 Private MD:Bertrand Yang Diagnosis:Abdominal Pain, Generalized;Dehydration Presentation: 01/19 21:08 Acuity: SUMI 3 rh 21:10 Presenting complaint: Patient states: elevated glucose for past few days with nausea, lb decreased appetite. Transition of care: Home. 21:10 Method Of Arrival: Walk In 21:10 Notified ED Physician of Byron Conner notified. lb Triage Assessment: 21:13 General: Appears in no apparent distress, Behavior is cooperative. Pain: Denies pain. lb Historical: - Allergies: Ampicillin; Toradol; Tramadol HCl; Ceftin; Plaquenil; Mobic; Lactulose; - Home Meds: 1. tujeo 2. Humalog Sub-Q 3. Cymbalta oral 4. [place] Oral 5. metoprolol tartrate Oral - PMHx: Diabetes - IDDM; connective tissue disorder; - PSHx: Appendectomy; Cholecysectomy; port implant; - Tetanus: < 10 years. - Ebola Screening: : Patient denies exposure to infectious person. Patient denies travel to an Ebola-affected area in the 21 days before illness onset. . - Immunization history: Flu Vaccine < 1 year. - Social history: Smoking status: Patient states was never smoker of tobacco. Patient uses alcohol occasionally. - Code Status:: Full code. Screenin:14 Infectious Disease Risk None. Abuse screen: Denies threats or abuse. Denies injuries lb from another. Nutritional screening: No deficits noted. Assessment: 21:14 See Triage Assessment done by same RN. lb 23:49 Reassessment: pt starting to feel improved. has finally voided. lb Vital Signs: 21:08 BP 135 / 93; Pulse 101; Resp 17; Temp 98.6(O); Pulse Ox 93% on R/A; Weight 61.23 kg; rh Height 5 ft. 1 in. (154.94 cm); Pain 0/10; 22:50 BP 117 / 73; Pulse 91; Resp 20; Pulse Ox 94% on 2 lpm NC; Pain 8/10; lb 01/20 00:20 BP 100 / 71; Pulse 79; Resp 15; Pulse Ox 98% on R/A; Pain 6/10; lb 01/19 21:08 Body Mass Index 25.51 (61.23 kg, 154.94 cm) ED Course: 01/19 21:06 Patient arrived in ED. em2 21:06 Bertrand Yang MD is Private Physician. em2 21:08 Triage completed. rh 21:09 Rachel Jones is Primary Nurse. lb 21:14 Valuables Remains with patient. lb 21:26 Jason Matthews MD is Attending Physician. darlyn 21:44 Accessed Port-a-Cath using accessed w/ # 20 Munguia needle, sterile technique, per [facility] protocol. Clean & dry. Dressing intact. Flushes easily. 23:03 Bertrand Yang MD is Referral Physician. Administered Medications: 21:43 Drug: NS 0.9% 1000 ml; Route: IV; Rate: bolus; Site: left subclavian; lb 23:49 Follow up: IV Status: Completed infusion; IV Intake: 1000ml lb 21:43 Drug: Phenergan 12.5 mg; Route: IVP; Site: left subclavian; lb 23:16 Follow up: Response: Nausea is decreased lb 21:43 Drug: Dilaudid 1 mg; Route: IVP; Site: left subclavian; lb 23:16 Follow up: Response: Pain is decreased lb 21:43 Drug: Zofran 4 mg; Route: IVP; Infused Over: 2 mins; Site: left subclavian; lb 23:17 Follow up: Response: Nausea is decreased lb 22:49 Drug: NS 0.9% 1000 ml; Route: IV; Rate: bolus; Site: left subclavian; lb 23:49 Follow up: IV Status: Completed infusion; IV Intake: 1000ml lb 22:49 Drug: Phenergan 12.5 mg; Route: IVP; Site: left subclavian; lb 23:17 Follow up: Response: Nausea is decreased lb 22:50 Drug: Dilaudid 1 mg; Route: IVP; Site: left subclavian; lb 23:17 Follow up: Response: Pain is decreased lb 22:58 Drug: Potassium Effervescent Tablet 25 mEq; Route: PO; lb 23:16 Follow up: Response: No change in condition lb 23:48 Drug: Dilaudid 1 mg; Route: IVP; Site: left subclavian; lb 01/20 00:19 Follow up: Response: Pain is decreased lb 01/19 23:48 Drug: Zofran 4 mg; Route: IVP; Infused Over: 2 mins; Site: left subclavian; lb 01/20 00:19 Follow up: Response: Nausea is decreased lb Point of Care Testing: Blood Glucose: 01/19 21:08 Blood Glucose: 337 mg/dL; Ranges: Intake: 23:49 IV: 1000ml; Total: 1000ml. lb 23:49 IV: 1000ml; Total: 2000ml. lb Outcome: 23:05 Discharge ordered by . darlyn 01/20 00:20 Discharged to home ambulatory. lb Condition: stable Discharge Assessment: Patient awake, alert and oriented x 3. No cognitive and/or functional deficits noted. Patient verbalized understanding of disposition instructions. IV D/Filipe 00:20 Patient left the ED. lb Signatures: Jason Matthews MD MD jm Meinking-reg, Ellen-reg em2 Hofsess, Rachel Rachel Jones lb
== END 2017-01-20 00:21 | disposition home or self-care (01) ==
LOC: ER 21:03
DX: E86.0 Dehydration (principal); R10.84 Generalized abdominal pain; E10.65 Type 1 diabetes mellitus with hyperglycemia; E10.43 Type 1 diabetes mellitus with diabetic autonomic (poly)neuropathy; M35.8 Other specified systemic involvement of connective tissue; Z79.899 Other long term (current) drug therapy
CPT/HCPCS: 80048; 84703; 85025; 96361; 96374; 96375; 96376; 99284; J1170; J1642; J2405; J2550

== ENCOUNTER 2017-02-11 20:14 | Emergency (ER) | payer OTHER ==
[2017-02-11 20:47] LABS: BASOPHIL# 0.1 X 10^3uL (0.0-0.1); BASOPHILS 1.3 % (0.0-2.0); EOSINOPHILS 2.8 % (0.0-6.0); EOSINOPHILS# 0.1 X 10^3uL (0.0-0.4); HEMATOCRIT 34.2 % (36.0-48.0); HEMOGLOBIN 11.3 g/dL (12.0-16.0); LYMPHOCYTES 39.8 % (20.0-40.0); LYMPHOCYTES# 1.8 X 10^3uL (0.8-3.8); MEAN CELL VOLUME 82.1 fL (80.0-100.0); MEAN CORPUSCULAR HEMOGLOBIN 27.1 pg (29.0-35.0); MEAN PLATELET VOLUME 7.1 fL (7.4-10.4); MONOCYTES 6.9 % (2.0-10.0); MONOCYTES# 0.3 X 10^3uL (0.2-1.0); NEUTROPHILS 49.2 % (54.0-75.0); NEUTROPHILS# 2.2 X 10^3uL (2.6-6.7); PLATELET COUNT 393 X 10^3uL (130-440); RED BLOOD COUNT 4.16 X 10^6uL (4.20-6.10); RED CELL DISTRIBUTION WIDTH 13.9 % (11.5-14.5); WHITE BLOOD COUNT 4.5 X 10^3uL (3.9-10.7)
[2017-02-11] MEDS ORDERED: ONDANSETRON HCL 4 MG/2 ML VIAL ONE (20:51)
[2017-02-11 20:52] LABS: BLOOD UREA NITROGEN 5 mg/dL (7-17); CALCIUM 8.4 mg/dL (8.4-10.2); CHLORIDE 97 mmol/L (98-107); EST GLOMERULAR FILTRATION RATE > 60 mL/min; MAGNESIUM 1.6 mg/dL (1.6-2.3); POTASSIUM 4.3 mmol/L (3.5-5.1); SODIUM 136 mmol/L (137-145)
[2017-02-11 20:53] LABS: GLUCOSE 428 mg/dL (70-100)
[2017-02-11] MEDS ORDERED: INSULIN REGULAR HUMAN 100 UNITS/ML ML ONE (21:58)
--- NOTE | 2017-02-11 22:46 | ER NURSING DOCUMENTATION ---
Nurse's Notes [facility] Name:Ximena Frank Age:36 yrs Sex:Female :1980 Arrival Date:02/11/2017 Time:20:14 Bed3 Private MD:Bertrand Yang Diagnosis:Hyperglycemia;Abdominal Pain, Generalized Presentation: 02/11 20:16 Acuity: SUMI 3 sc1 20:16 Presenting complaint: Patient states: abdominal pain. Transition of care: Home. [facility] [place] 20:16 Method Of Arrival: Private Vehicle nc1 Triage Assessment: 20:30 General: Appears in no apparent distress, well developed, well nourished, well groomed, sc1 Behavior is cooperative, pleasant. Pain: Complains of pain in abdomen. Historical: - Allergies: Ampicillin; Toradol; Tramadol HCl; Ceftin; Plaquenil; Mobic; Lactulose; - Home Meds: 1. tujeo 2. Humalog Sub-Q 3. Cymbalta oral 4. [place] Oral 5. metoprolol tartrate Oral - PMHx: DIABETES - IDDM; connective tissue disorder; Abdominal Pain, Generalized (January 19, 2017); Dehydration (January 19, 2017); - PSHx: APPENDECTOMY; CHOLECYSECTOMY; port implant; - Tetanus: < 10 years. - Ebola Screening: : Patient negative for fever greater than or equal to 101.5 degrees Fahrenheit, and additional compatible Ebola Virus Disease symptoms. Patient denies exposure to infectious person. Patient denies travel to an Ebola-affected area in the 21 days before illness onset. No symptoms or risks identified at this time. . - Immunization history: Flu Vaccine < 1 year. - Social history: Smoking status: Patient states was never smoker of tobacco. Screenin:31 Infectious Disease Risk None. Abuse screen: Denies threats or abuse. Nutritional sc1 screening: No deficits noted. Assessment: 22:33 Reassessment: PT main complaint upon ER arrival - nausea and dehydration. Upon rh receiving first dose of Zofran patient asking for IV dilaudid. PT requested IV dialudid two more times throughout her visit. . Vital Signs: 20:28 BP 136 / 85; Pulse 80; Resp 18; Temp 98.4; Pulse Ox 90% on R/A; sc1 ED Course: 20:15 Patient arrived in ED. ut1 20:15 Bertrand Yang MD is Private Physician. ma1 20:15 Jason Matthews MD is Attending Physician. jm 20:16 Triage completed. sc1 20:30 Pulse ox on. rh 20:31 Trisha Guerra is Primary Nurse. rh 20:31 Notified ED Physician of patient's arrival and chief complaint. Dr. Matthews notified. Arm sc1 band placed on Bed in low position Call Light in Reach Gowned HOB Elevated Side rails up x2. 20:31 Accessed Medi-Port using accessed w/ # 20 Munguia needle, Clean & dry. Dressing intact. sc1 Flushes easily. 22:31 Bertrand Yang MD is Referral Physician. jm 22:38 Assisted to bathroom. rh 22:41 Valuables Remains with patient Patient has correct armband on for positive rh identification. Placed in gown. Bed in low position. Call light in reach. Side rails up X 1. Administered Medications: 20:32 Drug: NS 0.9% 1000 ml; Route: IV; Rate: bolus; Site: left subclavian; rh 21:43 Follow up: IV Status: Completed infusion; IV Intake: 1000ml rh 20:38 Drug: Zofran 4 mg; Route: IVP; Infused Over: 2 mins; Site: left subclavian; rh 21:43 Follow up: Response: Nausea is decreased rh 20:43 Drug: Dilaudid 1 mg; Route: IVP; Site: left subclavian; rh 21:43 Follow up: Response: Pain is decreased rh 20:43 Drug: Phenergan 12.5 mg; Route: IVP; Site: left subclavian; rh 22:34 Follow up: Response: Nausea is decreased rh 21:42 Drug: Dilaudid 1 mg; Route: IVP; Site: left subclavian; rh 21:43 Follow up: Response: Pain is decreased rh 21:42 Drug: NS 0.9% 1000 ml; Route: IV; Rate: bolus; Site: left subclavian; rh 22:34 Follow up: IV Status: Completed infusion; IV Intake: 1000ml rh 21:47 Drug: Insulin Regular Human 5 units; Route: IVP; Site: left subclavian; rh 22:33 Follow up: Response: No adverse reaction rh 22:33 Drug: Phenergan 12.5 mg; Route: IVP; Site: left subclavian; rh 22:33 Follow up: Response: Nausea is decreased rh 22:33 Drug: Dilaudid 1 mg; Route: IVP; Site: left subclavian; rh 22:33 Follow up: Response: Pain is decreased rh 22:40 Drug: heparin Flush 10 units; Route: IVP; Site: left subclavian; rh 22:40 Follow up: Response: No adverse reaction Point of Care Testing: Blood Glucose: 20:28 Blood Glucose: 409 mg/dL; sc1 22:18 Blood Glucose: 276 mg/dL; rh Ranges: Intake: 21:43 IV: 1000ml; Total: 1000ml. rh 22:34 IV: 1000ml; Total: 2000ml. rh Outcome: 22:32 Discharge ordered by . 22:40 Discharged to home ambulatory, with family. 22:40 Condition: improved 22:40 Discharge Assessment: Patient awake, alert and oriented x 3. No cognitive and/or functional deficits noted. Patient verbalized understanding of disposition instructions. 22:40 Discharge instructions given to patient, significant other, Instructed on discharge instructions, follow up and referral plans. Demonstrated understanding of instructions. 22:40 IV D/Filipe 22:45 Patient left the ED. Signatures: Josie Hawkins RN RN nc1 Jason Matthews MD MD jm Hofsess, Rachel Carlee Lara [facility]
--- NOTE | 2017-02-11 22:46 | ER PHYSICIAN DOCUMENTATION ---
Physician Documentation [facility] Name:Ximena Frank Age:36 yrs Sex:Female :1980 Arrival Date:02/11/2017 Time:20:14 Bed3 Private MD:Bertrand Yang ED, John Disposition: 02/11/17 22:32 Discharged to Home/Self Care. Impression: Hyperglycemia, Abdominal Pain, Generalized. - Condition is Good. - Discharge Instructions: DIABETIC HYPERGLYCEMIA. - Medical Reconciliation form form. - Follow up: Bertrand Yang MD; When: 2 - 3 days; Reason: Continuance of care. - Problem is new. - Symptoms have improved. HPI: 02/11 22:47 This 36 yrs old Female presents to ER via Private Vehicle with complaints of jm Abdominal Pain, Nausea/Vomiting. 22:47 The patient presents with abdominal pain in the epigastric area. Onset: The jm symptoms/episode began/occurred today. The patient has experienced similar episodes in the past. Historical: - Allergies: Ampicillin; Toradol; Tramadol HCl; Ceftin; Plaquenil; Mobic; Lactulose; - Home Meds: 1. tujeo 2. Humalog Sub-Q 3. Cymbalta oral 4. [place] Oral 5. metoprolol tartrate Oral - PMHx: DIABETES - IDDM; connective tissue disorder; Abdominal Pain, Generalized (January 19, 2017); Dehydration (January 19, 2017); - PSHx: APPENDECTOMY; CHOLECYSECTOMY; port implant; - Tetanus: < 10 years. - Ebola Screening: : Patient negative for fever greater than or equal to 101.5 degrees Fahrenheit, and additional compatible Ebola Virus Disease symptoms. Patient denies exposure to infectious person. Patient denies travel to an Ebola-affected area in the 21 days before illness onset. No symptoms or risks identified at this time. . - Immunization history: Flu Vaccine < 1 year. - Social history: Smoking status: Patient states was never smoker of tobacco. ROS: 22:47 Constitutional: Negative for fever. jm 22:47 Abdomen/GI: Positive for abdominal pain, nausea, vomiting. Exam: 22:47 Constitutional: The patient appears alert, awake, comfortable. jm 22:47 ENT: Mouth: is normal, Voice: is hoarse. 22:47 Cardiovascular: Rate: normal, Rhythm: regular. 22:47 Abdomen/GI: Bowel sounds: normal, Palpation: moderate abdominal tenderness, in the umbilical area. Vital Signs: 20:28 BP 136 / 85; Pulse 80; Resp 18; Temp 98.4; Pulse Ox 90% on R/A; sc1 MDM: 20:16 Patient medically screened. 22:48 Differential diagnosis: non-specific abd pain. Data reviewed: vital signs, nurses notes, old medical records, lab test result(s), and as a result, I will discharge patient. Counseling: I had a detailed discussion with the patient and/or guardian regarding: the historical points, exam findings, and any diagnostic results supporting the discharge/admit diagnosis. 02/11 20:51 Order name: CBC AUTO DIF, MDIF/RMOR IF IND; Complete Time: 20:59 EDMS 02/11 20:56 Order name: BASIC METABOLIC PANEL; Complete Time: 20:59 EDMS 02/11 20:56 Order name: MAGNESIUM; Complete Time: 20:59 EDMS 02/11 20:57 Order name: HCG, SERUM; Complete Time: 20:59 EDMS 02/11 20:33 Order name: Pulse Ox Continuous; Complete Time: 20:34 Dispensed Medications: 20:32 Drug: NS 0.9% 1000 ml; Route: IV; Rate: bolus; Site: left subclavian; rh 21:43 Follow up: IV Status: Completed infusion; IV Intake: 1000ml rh 20:38 Drug: Zofran 4 mg; Route: IVP; Infused Over: 2 mins; Site: left subclavian; rh 21:43 Follow up: Response: Nausea is decreased rh 20:43 Drug: Dilaudid 1 mg; Route: IVP; Site: left subclavian; rh 21:43 Follow up: Response: Pain is decreased rh 20:43 Drug: Phenergan 12.5 mg; Route: IVP; Site: left subclavian; rh 22:34 Follow up: Response: Nausea is decreased rh 21:42 Drug: Dilaudid 1 mg; Route: IVP; Site: left subclavian; rh 21:43 Follow up: Response: Pain is decreased rh 21:42 Drug: NS 0.9% 1000 ml; Route: IV; Rate: bolus; Site: left subclavian; rh 22:34 Follow up: IV Status: Completed infusion; IV Intake: 1000ml rh 21:47 Drug: Insulin Regular Human 5 units; Route: IVP; Site: left subclavian; rh 22:33 Follow up: Response: No adverse reaction rh 22:33 Drug: Phenergan 12.5 mg; Route: IVP; Site: left subclavian; rh 22:33 Follow up: Response: Nausea is decreased rh 22:33 Drug: Dilaudid 1 mg; Route: IVP; Site: left subclavian; rh 22:33 Follow up: Response: Pain is decreased rh 22:40 Drug: heparin Flush 10 units; Route: IVP; Site: left subclavian; rh 22:40 Follow up: Response: No adverse reaction Point of Care Testing: Blood Glucose: 20:28 Blood Glucose: 409 mg/dL; sc1 22:18 Blood Glucose: 276 mg/dL; rh Ranges: Critical Glucose Levels:Adult <50 mg/dl or >400 mg/dl <40 mg/dl or >180 mg/dl Signatures: Josie Hawkins RN RN [facility] Jason Matthews MD MD jm Hofsess, Rachel
== END 2017-02-11 22:46 | disposition home or self-care (01) ==
LOC: ER 20:14
DX: E10.65 Type 1 diabetes mellitus with hyperglycemia (principal); R10.84 Generalized abdominal pain; R11.2 Nausea with vomiting, unspecified; E10.43 Type 1 diabetes mellitus with diabetic autonomic (poly)neuropathy; M35.8 Other specified systemic involvement of connective tissue
CPT/HCPCS: 80048; 83735; 84703; 85025; 96361; 96374; 96375; 96376; 99284; J1170; J1642; J1815; J2405; J2550

== ENCOUNTER 2017-02-17 16:15 | Emergency (ER) | payer OTHER ==
[2017-02-17 17:05] LABS: BASOPHILS 0.6 % (0.0-2.0); EOSINOPHILS 0.1 % (0.0-6.0); HEMATOCRIT 33.3 % (36.0-48.0); LYMPHOCYTES 15.2 % (20.0-40.0); LYMPHOCYTES# 1.1 X 10^3uL (0.8-3.8); MEAN CELL VOLUME 82.2 fL (80.0-100.0); MEAN CORPUS. HGB CONCENTRATION 33.2 g/dL (32.0-36.0); MEAN CORPUSCULAR HEMOGLOBIN 27.3 pg (29.0-35.0); MEAN PLATELET VOLUME 6.8 fL (7.4-10.4); MONOCYTES 3.1 % (2.0-10.0); MONOCYTES# 0.2 X 10^3uL (0.2-1.0); NEUTROPHILS# 6.1 X 10^3uL (2.6-6.7); PLATELET COUNT 434 X 10^3uL (130-440); RED BLOOD COUNT 4.05 X 10^6uL (4.20-6.10); RED CELL DISTRIBUTION WIDTH 14.3 % (11.5-14.5); WHITE BLOOD COUNT 7.4 X 10^3uL (3.9-10.7)
[2017-02-17 17:13] LABS: A/G RATIO 1.2; ALBUMIN 3.7 g/dL (3.5-5.0); ALKALINE PHOSPHATASE 83 U/L (38-126); ALT 28 U/L (9-52); AST 29 U/L (14-36); BILIRUBIN, TOTAL 0.7 mg/dL (0.2-1.3); BLOOD UREA NITROGEN 11 mg/dL (7-17); CALCIUM 8.7 mg/dL (8.4-10.2); CHLORIDE 101 mmol/L (98-107); EST GLOMERULAR FILTRATION RATE > 60 mL/min; POTASSIUM 4.3 mmol/L (3.5-5.1); SODIUM 134 mmol/L (137-145); TOTAL PROTEIN 6.8 g/dL (6.3-8.2)
[2017-02-17 17:15] LABS: GLUCOSE 277 mg/dL (70-100)
[2017-02-17] MEDS ORDERED: ONDANSETRON HCL 4 MG/2 ML VIAL ONE (17:38)
--- NOTE | 2017-02-17 21:20 | ER PHYSICIAN DOCUMENTATION ---
Physician Documentation [facility] Name:Ximena Frank Age:36 yrs Sex:Female :1980 Arrival Date:02/17/2017 Time:16:15 Bed1 Private MD:Bertrand Yang EDAgustinaSlade Disposition: 02/18 10:02 Chart complete. tl1 Disposition: 02/17/17 20:45 Discharged to Home/Self Care. Impression: Vomiting - Dehydration, Abdominal Pain, Periumbilical, Diabetes Mellitus, Type 1 with Hyperglycemia. - Condition is Good. - Discharge Instructions: DEHYDRATION (6y-Adult), DIABETIC HYPERGLYCEMIA, VOMITING (6y-Adult). - Prescriptions for Zofran 4 mg Oral Tablet - take 1-2 tablet by ORAL route every 4-6 hours As needed; 10 tablet. - Medical Reconciliation form form. - Follow up: Bertrand Yang MD; When: 2 - 3 days; Reason: Recheck today's complaints, Continuance of care. - Problem is new. - Symptoms have improved. HPI: 02/17 16:28 This 36 yrs old Female presents to ER via Private Vehicle with complaints of tl1 Fainting. 16:28 The patient has experienced syncope. Onset: The symptom(s)/episode began/occurred tl1 suddenly, just prior to arrival. Duration: This was a single episode. 16:30 She had a syncopal episode after standing up out of bed at about noon. she hit her left tl1 cheek on the bed, but there was no LOC, and no neck pain. This is in the setting of having a difficult time managing her blood sugars over the last several days, without her long lasting insulin (toujeo) because she cannot afford it and has not been able to obtain any free samples. She has had some polyuria and a recurrence of her typical epigastric abdominal pain with some nausea. Denies f/c/s. No melena,hematochezia or hematemesis. . Historical: - Allergies: Ampicillin; Toradol; Tramadol HCl; Ceftin; Plaquenil; Mobic; Lactulose; - Home Meds: 1. tujeo 2. Humalog Sub-Q 3. Cymbalta oral 4. [place] Oral 5. metoprolol tartrate Oral - PMHx: DIABETES - IDDM; connective tissue disorder; Abdominal Pain, Generalized (January 19, 2017); - PSHx: APPENDECTOMY; CHOLECYSECTOMY; port implant; - Tetanus: < 10 years. - Ebola Screening: : Patient denies exposure to infectious person. Patient denies travel to an Ebola-affected area in the 21 days before illness onset. . - Immunization history: Flu Vaccine < 1 year. - Social history: Smoking status: . ROS: 16:30 Cardiovascular: Negative for chest pain, orthopnea, palpitations, acute changes. tl1 16:30 Abdomen/GI: Positive for abdominal pain, nausea, vomiting, abdominal cramps, Negative for diarrhea, hematemesis, black/tarry stool, rectal bleeding. 16:30 : Positive for urinary frequency, Negative for hematuria, pelvic pain, burning with urination, difficulty urinating. 16:30 Skin: 16:30 All other systems are negative. Exam: 16:30 Constitutional: The patient appears alert, awake, pale, uncomfortable. tl1 16:30 Head/face: Exam is negative for acute changes. 16:30 ENT: Mouth: Oral mucosa: pink and intact, dry. 16:30 Neck: ROM/movement: is normal, is supple, Lymph nodes: no appreciated lymphadenopathy. 16:30 Cardiovascular: Rate: normal, Rhythm: regular, Heart sounds: normal, Edema: is not appreciated. 16:30 Respiratory: Respirations: normal, Breath sounds: are normal, no rales, rhonchi, no stridor, no wheezing. 16:30 Abdomen/GI: Inspection: abdomen appears normal, Palpation: soft, mild abdominal tenderness, in the umbilical area, rebound tenderness, is not appreciated, voluntary guarding, is not appreciated, no appreciated organomegaly. 16:30 Back: Exam negative for acute changes. 16:30 Musculoskeletal/extremity: Exam is negative for acute changes. 16:30 Skin: Exam negative for acute changes. 16:30 Neuro: Exam negative for acute changes. Vital Signs: 16:27 BP 108 / 71; Pulse 93; Pulse Ox 94% on R/A; Pain 8/10; st 19:30 BP 99 / 59 (auto/); mk2 19:30 Pulse 79; Resp 13; Pulse Ox 88% on R/A; Pain 8/10; mk2 20:42 BP 101 / 64; Resp 12; Pulse Ox 99% on 2 lpm NC; Pain 5/10; mk2 21:18 BP 110 / 64; Pulse 81; Resp 13; Pulse Ox 92% on R/A; Pain 3/10; mk2 MDM: 16:28 Patient medically screened. tl1 17:01 ECG:. tl1 17:42 EKG attached 02/18 10:02 Differential Diagnosis: cardiac arrhythmia, drug effect, GI bleed, idiopathic syncope, tl1 vasovagal episode, dehydration. Data reviewed: vital signs, nurses notes, lab test result(s), EKG, and as a result, I will discharge patient. Counseling: I had a detailed discussion with the patient and/or guardian regarding: the historical points, exam findings, and any diagnostic results supporting the discharge/admit diagnosis, lab results, the need for outpatient follow up, to return to the emergency department if symptoms worsen or persist or if there are any questions or concerns that arise at home. Response to treatment: the patient's symptoms have markedly improved after treatment, and as a result, I will discharge patient. ED course: Hydrated with 3 liters of NS. Pain and nausea controlled with Dilaudid, Zofran. Blood sugars under 200 just prior to d/c.. 02/17 17:09 Order name: CBC AUTO DIF, MDIF/RMOR IF IND; Complete Time: 17:51 EDRI 02/17 17:43 Interpretation: WHITE BLOOD COUNT 7.4; HEMOGLOBIN 11.0; MEAN CELL VOLUME 82.2; PLATELET tl1 COUNT 434; NEUTROPHILS 81.0. 02/17 17:15 Order name: COMPREHENSIVE METABOLIC PANEL; Complete Time: 17:51 EDRI 02/17 17:43 Interpretation: SODIUM 134; POTASSIUM 4.3; CHLORIDE 101; CARBON DIOXIDE 23; GLUCOSE tl1 277; BLOOD UREA NITROGEN 11; CREATININE 0.5; EST GLOMERULAR FILTRATION RATE > 60. 02/17 16:28 Order name: EKG - 12 Lead; Complete Time: 16:51 [facility] 02/17 17:52 Order name: PO Challenge; Complete Time: 20:45 tl1 02/17 20:44 Order name: Oxygen; Complete Time: 20:45 mk2 EC/15 16:39 Rate is 75 beats/min. Rhythm is regular, Normal Sinus Rhythm. QRS [place] is Normal. AR tl1 interval is normal at 135 msec. QRS interval is normal at 6 msec. QT interval is normal. No Q waves. T waves are Normal. No ST changes noted. Clinical impression: Normal ECG. Interpreted by me. Reviewed by me. Dispensed Medications: 16:59 Drug: NS 0.9% 1000 ml; Route: IV; Rate: bolus; Site: left subclavian; st 18:03 Follow up: IV Status: Completed infusion; IV Intake: 1000ml st 17:29 Drug: Dilaudid 0.5 mg; Route: IVP; Site: left subclavian; st 18:28 Follow up: Response: Pain is decreased st 17:29 Drug: Zofran 4 mg; Route: IVP; Infused Over: 2 mins; Site: left subclavian; st 18:29 Follow up: Response: Nausea is decreased st 18:03 Drug: NS 0.9% 1000 ml; Route: IV; Rate: bolus; Site: left subclavian; st 19:34 Follow up: IV Status: Completed infusion; IV Intake: 1000ml mk2 18:03 Drug: Phenergan 12.5 mg; Route: IVP; Site: left subclavian; st 18:29 Follow up: Response: Nausea is decreased st 18:28 Drug: Dilaudid 1 mg; Route: IVP; Site: left subclavian; st 19:34 Follow up: Response: No change in condition mk2 19:35 Drug: Phenergan 12.5 mg; Route: IVP; Site: left antecubital; mk2 20:44 Follow up: Response: Nausea is decreased mk2 20:43 Drug: Dilaudid 1 mg; {Note: port.} Route: IVP; Site: left antecubital; mk2 20:44 Follow up: Response: Pain is decreased mk2 20:45 Drug: NS 0.9% 1000 ml; {Note: port.} Route: IV; Rate: bolus; Site: left antecubital; mk2 21:18 Follow up: IV Status: Completed infusion; IV Intake: 999ml mk2 21:17 Drug: heparin Flush 10 units; {Note: port flush after saline flush.} Route: IVP; Site: mk2 left antecubital; 21:17 Follow up: Response: No adverse reaction mk2 Point of Care Testing: Blood Glucose: 16:28 Blood Glucose: 224 mg/dL; st 19:34 Blood Glucose: 198 mg/dL; mk2 Ranges: Critical Glucose Levels:Adult <50 mg/dl or >400 mg/dl <40 mg/dl or >180 mg/dl Signatures: Hellen Haywood, MATEO GALINDO st Leonor Smith RN RN mk2 Slade Berrios MD MD tl1 Missy Ott
--- NOTE | 2017-02-17 21:20 | ER NURSING DOCUMENTATION ---
Nurse's Notes [facility] Name:iXmena Frank Age:36 yrs Sex:Female :1980 Arrival Date:02/17/2017 Time:16:15 Bed1 Private MD:Bertrand Yang Diagnosis:Vomiting - Dehydration;Abdominal Pain, Periumbilical;Diabetes Mellitus, Type 1 with Hyperglycemia Presentation: 02/17 16:23 Presenting complaint: Patient states: pt states she passed out today. pt states that st she has been out of her Deveo since her insurance will not pay for it and she has had some N/V for the past two day. pt has been using Humalog to control her blood sugars. Transition of care: Home. 16:23 Acuity: SUMI 3 st 16:23 Method Of Arrival: Private Vehicle st Triage Assessment: 16:26 General: Appears in no apparent distress, Behavior is cooperative. Pain: Complains of st pain in abdomen Pain currently is 8 out of 10 on a pain scale. Pain began chronic. Pt does not appear to be in any discomfort. EENT: Oral mucosa is moist. Cardiovascular: Capillary refill < 3 seconds Heart tones present. Respiratory: No deficits noted. GI: Abdomen is flat, non- distended Abd is soft and non tender X 4 quads. Reports nausea, vomiting. Historical: - Allergies: Ampicillin; Toradol; Tramadol HCl; Ceftin; Plaquenil; Mobic; Lactulose; - Home Meds: 1. tujeo 2. Humalog Sub-Q 3. Cymbalta oral 4. [place] Oral 5. metoprolol tartrate Oral - PMHx: DIABETES - IDDM; connective tissue disorder; Abdominal Pain, Generalized (January 19, 2017); - PSHx: APPENDECTOMY; CHOLECYSECTOMY; port implant; - Tetanus: < 10 years. - Ebola Screening: : Patient denies exposure to infectious person. Patient denies travel to an Ebola-affected area in the 21 days before illness onset. . - Immunization history: Flu Vaccine < 1 year. - Social history: Smoking status: . Screenin:27 Infectious Disease Risk None. Abuse screen: Denies threats or abuse. Denies injuries st from another. pt feels safe at home. Nutritional screening: No deficits noted. Assessment: 18:03 General: pt resting quietly. . st 18:29 General: pt continues to rest quietly. She does not appear to be in any discomfort. . st Vital Signs: 16:27 BP 108 / 71; Pulse 93; Pulse Ox 94% on R/A; Pain 8/10; st 19:30 BP 99 / 59 (auto/); mk2 19:30 Pulse 79; Resp 13; Pulse Ox 88% on R/A; Pain 8/10; mk2 20:42 BP 101 / 64; Resp 12; Pulse Ox 99% on 2 lpm NC; Pain 5/10; mk2 21:18 BP 110 / 64; Pulse 81; Resp 13; Pulse Ox 92% on R/A; Pain 3/10; mk2 ED Course: 16:17 Patient arrived in ED. jl 16:17 Bertrand Yang MD is Private Physician. jl 16:23 Hellen Haywood RN is Primary Nurse. st 16:[address] 16:27 Slade Berrios MD is Attending Physician. tl1 16:28 Valuables Remains with patient Bed in low position. st 16:39 EKG done per protocol. st 16:55 Accessed Port-a-Cath using accessed w/ # 20 Munguia needle, sterile technique, per [facility] protocol. Clean & dry. Dressing intact. Good blood return. 16:58 Labs drawn. (by ED staff). st 17:42 EKG attached 19:24 Report received from Summer. Montes mk2 19:32 Pulse ox on. NIBP on. Verbal reassurance given. Warm blanket given. mk2 20:06 Bertrand Yang MD is Referral Physician. tl1 20:44 Oxygen Oxygen administration via nasal cannula @ 2L/min. mk2 20:58 Resting quietly. Pt states she is feeling much better and would like to go. mk2 21:18 access from Port. mk2 Administered Medications: 16:59 Drug: NS 0.9% 1000 ml; Route: IV; Rate: bolus; Site: left subclavian; st 18:03 Follow up: IV Status: Completed infusion; IV Intake: 1000ml st 17:29 Drug: Dilaudid 0.5 mg; Route: IVP; Site: left subclavian; st 18:28 Follow up: Response: Pain is decreased st 17:29 Drug: Zofran 4 mg; Route: IVP; Infused Over: 2 mins; Site: left subclavian; st 18:29 Follow up: Response: Nausea is decreased st 18:03 Drug: NS 0.9% 1000 ml; Route: IV; Rate: bolus; Site: left subclavian; st 19:34 Follow up: IV Status: Completed infusion; IV Intake: 1000ml mk2 18:03 Drug: Phenergan 12.5 mg; Route: IVP; Site: left subclavian; st 18:29 Follow up: Response: Nausea is decreased st 18:28 Drug: Dilaudid 1 mg; Route: IVP; Site: left subclavian; st 19:34 Follow up: Response: No change in condition mk2 19:35 Drug: Phenergan 12.5 mg; Route: IVP; Site: left antecubital; mk2 20:44 Follow up: Response: Nausea is decreased mk2 20:43 Drug: Dilaudid 1 mg; {Note: port.} Route: IVP; Site: left antecubital; mk2 20:44 Follow up: Response: Pain is decreased mk2 20:45 Drug: NS 0.9% 1000 ml; {Note: port.} Route: IV; Rate: bolus; Site: left antecubital; mk2 21:18 Follow up: IV Status: Completed infusion; IV Intake: 999ml mk2 21:17 Drug: heparin Flush 10 units; {Note: port flush after saline flush.} Route: IVP; Site: [facility] left antecubital; 21:17 Follow up: Response: No adverse reaction mk2 Point of Care Testing: Blood Glucose: 16:28 Blood Glucose: 224 mg/dL; st 19:34 Blood Glucose: 198 mg/dL; mk2 Ranges: Intake: 18:03 IV: 1000ml; Total: 1000ml. st 19:34 IV: 1000ml; Total: 2000ml. mk2 21:18 IV: 999ml; Total: 2999ml. mk2 Outcome: 20:45 Discharge ordered by . tl1 21:18 Discharged to home ambulatory. mk2 21:18 Condition: improved 21:18 Discharge instructions given to patient, family, Instructed on discharge instructions, follow up and referral plans. medication usage. 21:18 Prescriptions given X 1. 21:18 IV D/Filipe 21:19 Patient left the ED. mk2 02/18 09:27 Discharge F/U Call: Unable to reach: Spoke with: other: Name: hung up on. st Signatures: Hellen Haywood RN Leonor Ruiz RN RN leslie2 Slade Berrios MD MD tl1 Missy Ott Jeff jl
== END 2017-02-17 21:20 | disposition home or self-care (01) ==
LOC: ER 16:15
DX: E86.0 Dehydration (principal); R11.2 Nausea with vomiting, unspecified; R10.33 Periumbilical pain; E10.65 Type 1 diabetes mellitus with hyperglycemia; E10.43 Type 1 diabetes mellitus with diabetic autonomic (poly)neuropathy; K31.84 Gastroparesis; M35.8 Other specified systemic involvement of connective tissue; Z79.899 Other long term (current) drug therapy
CPT/HCPCS: 80053; 85025; 93005; 96361; 96374; 96375; 96376; 99285; J1170; J1642; J2405; J2550

== ENCOUNTER 2017-03-05 21:15 | Emergency (ER) | payer OTHER ==
[2017-03-05 21:58] LABS: BASOPHIL# 0.1 X 10^3uL (0.0-0.1); BASOPHILS 1.2 % (0.0-2.0); EOSINOPHILS 0.6 % (0.0-6.0); HEMATOCRIT 35.1 % (36.0-48.0); HEMOGLOBIN 11.3 g/dL (12.0-16.0); LYMPHOCYTES 34.5 % (20.0-40.0); LYMPHOCYTES# 1.8 X 10^3uL (0.8-3.8); MEAN CELL VOLUME 82.4 fL (80.0-100.0); MEAN CORPUS. HGB CONCENTRATION 32.3 g/dL (32.0-36.0); MEAN CORPUSCULAR HEMOGLOBIN 26.6 pg (29.0-35.0); MEAN PLATELET VOLUME 7.1 fL (7.4-10.4); MONOCYTES 6.4 % (2.0-10.0); MONOCYTES# 0.3 X 10^3uL (0.2-1.0); NEUTROPHILS 57.3 % (54.0-75.0); NEUTROPHILS# 2.9 X 10^3uL (2.6-6.7); PLATELET COUNT 397 X 10^3uL (130-440); RED BLOOD COUNT 4.25 X 10^6uL (4.20-6.10); RED CELL DISTRIBUTION WIDTH 14.4 % (11.5-14.5); WHITE BLOOD COUNT 5.1 X 10^3uL (3.9-10.7)
[2017-03-05 22:03] LABS: BLOOD UREA NITROGEN 6 mg/dL (7-17); CALCIUM 9.3 mg/dL (8.4-10.2); CHLORIDE 104 mmol/L (98-107); EST GLOMERULAR FILTRATION RATE > 60 mL/min; POTASSIUM 3.7 mmol/L (3.5-5.1); SODIUM 136 mmol/L (137-145)
[2017-03-05 22:05] LABS: GLUCOSE 312 mg/dL (70-100)
[2017-03-06] MEDS ORDERED: ONDANSETRON HCL 4 MG/2 ML VIAL ONE (00:27)
--- NOTE | 2017-03-06 00:58 | ER NURSING DOCUMENTATION ---
Nurse's Notes [facility] Name:Ximena Frank Age:36 yrs Sex:Female :1980 Arrival Date:03/05/2017 Time:21:15 Bed1 Private MD: Diagnosis:Abdominal Pain, Epigastric Presentation: 03/05 21:27 Presenting complaint: Patient states: C/O FEELING WEAK, DIZZY AND TIRED RECENTLY, WITH lc ABDOMINAL PAIN- SIMILAR TO PAIN IN THE PAST. LAST BS WAS 345 AT HOME. Transition of care: Home. Risk considerations: patient denies pain radiation to back or syncopal episode. 21:27 Acuity: SUMI 3 lc 21:27 Method Of Arrival: Private Vehicle lc Triage Assessment: 21:31 General: Appears in no apparent distress, Behavior is cooperative, pleasant. Pain: lc Complains of pain in umbilical area Pain At worst was 9 out of 10 on a pain scale. Quality of pain is described as sharp, Pain began 1 day ago. Neuro: No deficits noted. Level of Consciousness is awake, alert, Oriented to person, place, time, event. Cardiovascular: Rhythm is sinus rhythm. GI: Abdomen is non- distended Abd is soft Abdomen is tender to palpation in umbilical area. Historical: - Allergies: Ampicillin; Toradol; Tramadol HCl; Ceftin; Plaquenil; Mobic; Lactulose; - Home Meds: 1. tujeo 2. Humalog Sub-Q 3. Cymbalta oral 4. [place] Oral as needed for pain 5. metoprolol tartrate Oral - PMHx: DIABETES - IDDM; connective tissue disorder; Abdominal Pain, Generalized (January 19, 2017); Vomiting - Dehydration (February 17, 2017); Abdominal Pain, Periumbilical (February 17, 2017); Diabetes Mellitus, Type 1 with Hyperglycemia (February 17, 2017); - PSHx: APPENDECTOMY; CHOLECYSECTOMY; port implant; - Tetanus: < 10 years. - Ebola Screening: : Patient denies travel to an Ebola-affected area in the 21 days before illness onset. No symptoms or risks identified at this time. . - Immunization history: Flu Vaccine < 1 year. - Social history: Smoking status: Patient states was never smoker of tobacco. Screenin:34 Infectious Disease Risk None. Abuse screen: Denies threats or abuse. Denies injuries lc from another. Nutritional screening: No deficits noted. Assessment: 21:33 See Triage Assessment done by same RN. 03/06 00:51 Reassessment: Patient states feeling better. Patient states symptoms have improved. Patient appears in no apparent distress at this time. FEELS READY FOR DC, PORT LINE FLUSHED AND DC. Vital Signs: 03/05 21:33 BP 129 / 86; Pulse 88; Resp 16; Temp 98; Pulse Ox 93% on R/A; Weight 61.23 kg; Height 5 ft. 1 in. (154.94 cm); Pain 9/10; 23:00 BP 122 / 76 (auto/); lc 23:17 Pulse 83 MON; Resp 18; 23:30 BP 130 / 84 (auto/); 23:32 Pulse 74 MON; Resp 9; Pulse Ox 94% on R/A; Pain 8/10; 03/06 00:00 BP 115 / 77 (auto/); 00:02 Pulse 77 MON; Resp 11; Pulse Ox 94% on R/A; Pain 8/10; 00:57 Pain 2/10; 03/05 21:33 Body Mass Index 25.51 (61.23 kg, 154.94 cm) ED Course: 03/05 21:16 Patient arrived in ED. em3 21:18 Jason Matthews MD is Attending Physician. darlyn 21:27 Katrin Bloom, MATEO is Primary Nurse. 21:29 Triage completed. 21:34 Valuables Remains with patient Placed in gown. Bed in low position. Call light in lc reach. Adult w/ patient. Cardiac Monitoring On for Nurse Monitoring only. 21:40 Accessed Medi-Port and blood collected. using accessed w/ # 20 Munguia needle, sterile lc technique, per hospital protocol. Clean & dry. Dressing intact. Flushes easily. 03/06 00:51 Bertrand Yang MD is Referral Physician. darlyn Administered Medications: Completed: NS 0.9% 1000 ml IV at bolus once 03/05 21:50 Drug: NS 0.9% 1000 ml; Route: IV; Rate: bolus; Site: right subclavian; 23:26 Follow up: IV Status: Completed infusion; IV Intake: 1000ml 21:55 Drug: Dilaudid 1 mg; Route: IVP; Site: right subclavian; lc 22:44 Follow up: Response: Pain is decreased lc 21:57 Drug: Phenergan 12.5 mg; Route: IVP; Site: right subclavian; lc 22:44 Follow up: Response: Nausea is decreased lc 22:42 Drug: Phenergan 12.5 mg; Route: IVP; Site: right subclavian; lc 03/06 00:26 Follow up: Response: Nausea is decreased lc 03/05 22:44 Drug: Dilaudid 1 mg; Route: IVP; Site: right subclavian; lc 03/06 00:25 Follow up: Response: Pain is decreased 03/05 23:26 Drug: NS 0.9% 1000 ml; Route: IV; Rate: bolus; Site: right subclavian; lc 03/06 00:52 Follow up: IV Status: Completed infusion; IV Intake: 1000ml lc 00:20 Drug: Zofran 8 mg; Route: IVP; Infused Over: 2 mins; Site: right subclavian; lc 00:36 Follow up: Response: Nausea is decreased lc 00:22 Drug: Dilaudid 1 mg; Route: IVP; Site: right subclavian; lc 00:36 Follow up: Response: Pain is decreased lc 00:53 Drug: heparin Flush 500 units; {Note: PORT FLUSHED.} Route: IVP; Site: left subclavian; 00:55 Follow up: Response: No adverse reaction Intake: 03/05 23:26 IV: 1000ml; Total: 1000ml. 03/06 00:52 IV: 1000ml; Total: 2000ml. Outcome: 00:52 Discharge ordered by . darlyn 00:57 Discharged to home ambulatory, with significant other. 00:57 Condition: stable 00:57 Discharge Assessment: Patient awake, alert and oriented x 3. No cognitive and/or functional deficits noted. Patient verbalized understanding of disposition instructions. 00:57 Discharge instructions given to patient, Instructed on discharge instructions, follow up and referral plans. Demonstrated understanding of instructions. 00:58 Patient left the ED. Signatures: Katrin Bloom RN RN Jason Torres MD MD jm Meiklejohn, Eric 3 Chel Bryan [facility]
--- NOTE | 2017-03-06 00:58 | ER PHYSICIAN DOCUMENTATION ---
Physician Documentation [facility] Name:Ximena Frank Age:36 yrs Sex:Female :1980 Arrival Date:03/05/2017 Time:21:15 Bed1 Private MD: Jason Gil Disposition: 03/06/17 00:52 Discharged to Home/Self Care. Impression: Abdominal Pain, Epigastric. - Condition is Good. - Discharge Instructions: ABDOMINAL PAIN, Unknown Cause, (Female). - Medical Reconciliation form form. - Follow up: Bertrand Yang MD; When: 2 - 3 days; Reason: Continuance of care. - Problem is new. - Symptoms have improved. HPI: 03/06 03:28 This 36 yrs old Female presents to ER via Private Vehicle with complaints of jm Abdominal Pain. 03:28 The patient presents with abdominal pain in the epigastric area. Onset: The jm symptoms/episode began/occurred today. The patient has experienced similar episodes in the past. Historical: - Allergies: Ampicillin; Toradol; Tramadol HCl; Ceftin; Plaquenil; Mobic; Lactulose; - Home Meds: 1. tujeo 2. Humalog Sub-Q 3. Cymbalta oral 4. [place] Oral as needed for pain 5. metoprolol tartrate Oral - PMHx: DIABETES - IDDM; connective tissue disorder; Abdominal Pain, Generalized (January 19, 2017); Vomiting - Dehydration (February 17, 2017); Abdominal Pain, Periumbilical (February 17, 2017); Diabetes Mellitus, Type 1 with Hyperglycemia (February 17, 2017); - PSHx: APPENDECTOMY; CHOLECYSECTOMY; port implant; - Tetanus: < 10 years. - Ebola Screening: : Patient denies travel to an Ebola-affected area in the 21 days before illness onset. No symptoms or risks identified at this time. . - Immunization history: Flu Vaccine < 1 year. - Social history: Smoking status: Patient states was never smoker of tobacco. ROS: 03:28 Abdomen/GI: Positive for abdominal pain, nausea, vomiting. jm 03:28 All other systems are negative. Exam: 03:28 Constitutional: The patient appears alert, awake. jm 03:28 Cardiovascular: Rate: normal, Rhythm: regular. 03:28 Respiratory: Respirations: normal, Breath sounds: are normal. 03:28 Abdomen/GI: Bowel sounds: normal, Palpation: mild abdominal tenderness, in the umbilical area. Vital Signs: 03/05 21:33 BP 129 / 86; Pulse 88; Resp 16; Temp 98; Pulse Ox 93% on R/A; Weight 61.23 kg; Height 5 lc ft. 1 in. (154.94 cm); Pain 9/10; 23:00 BP 122 / 76 (auto/); lc 23:17 Pulse 83 MON; Resp 18; lc 23:30 BP 130 / 84 (auto/); lc 23:32 Pulse 74 MON; Resp 9; Pulse Ox 94% on R/A; Pain 8/10; 03/06 00:00 BP 115 / 77 (auto/); lc 00:02 Pulse 77 MON; Resp 11; Pulse Ox 94% on R/A; Pain 8/10; lc 00:57 Pain 2/10; lc 03/05 21:33 Body Mass Index 25.51 (61.23 kg, 154.94 cm) MDM: 03/05 21:17 Patient medically screened. 03/06 03:29 Differential diagnosis: non-specific abd pain. Data reviewed: vital signs, nurses notes, old medical records, lab test result(s), and as a result, I will discharge patient. Counseling: I had a detailed discussion with the patient and/or guardian regarding: the historical points, exam findings, and any diagnostic results supporting the discharge/admit diagnosis. 03/05 22:00 Order name: CBC AUTO DIF, MDIF/RMOR IF IND; Complete Time: 22:34 [facility] 03/05 22:06 Order name: BASIC METABOLIC PANEL; Complete Time: 22:34 [facility] 03/05 21:19 Order name: Iv Saline Lock; Complete Time: 22:05 03/05 21:19 Order name: Pulse Ox Continuous; Complete Time: 22:05 Dispensed Medications: Completed: NS 0.9% 1000 ml IV at bolus once 03/05 21:50 Drug: NS 0.9% 1000 ml; Route: IV; Rate: bolus; Site: right subclavian; 23:26 Follow up: IV Status: Completed infusion; IV Intake: 1000ml 21:55 Drug: Dilaudid 1 mg; Route: IVP; Site: right subclavian; 22:44 Follow up: Response: Pain is decreased lc 21:57 Drug: Phenergan 12.5 mg; Route: IVP; Site: right subclavian; lc 22:44 Follow up: Response: Nausea is decreased lc 22:42 Drug: Phenergan 12.5 mg; Route: IVP; Site: right subclavian; lc 03/06 00:26 Follow up: Response: Nausea is decreased lc 03/05 22:44 Drug: Dilaudid 1 mg; Route: IVP; Site: right subclavian; lc 03/06 00:25 Follow up: Response: Pain is decreased lc 03/05 23:26 Drug: NS 0.9% 1000 ml; Route: IV; Rate: bolus; Site: right subclavian; lc 03/06 00:52 Follow up: IV Status: Completed infusion; IV Intake: 1000ml lc 00:20 Drug: Zofran 8 mg; Route: IVP; Infused Over: 2 mins; Site: right subclavian; lc 00:36 Follow up: Response: Nausea is decreased lc 00:22 Drug: Dilaudid 1 mg; Route: IVP; Site: right subclavian; lc 00:36 Follow up: Response: Pain is decreased lc 00:53 Drug: heparin Flush 500 units; {Note: PORT FLUSHED.} Route: IVP; Site: left subclavian; lc 00:55 Follow up: Response: No adverse reaction lc Signatures: Katrin Bloom RN RN Jason Torres MD MD jm Wisely, [place] [id number]
== END 2017-03-06 00:58 | disposition home or self-care (01) ==
LOC: ER 21:15
DX: R10.13 Epigastric pain (principal); R11.2 Nausea with vomiting, unspecified; E10.65 Type 1 diabetes mellitus with hyperglycemia; E10.43 Type 1 diabetes mellitus with diabetic autonomic (poly)neuropathy; M35.8 Other specified systemic involvement of connective tissue; Z79.899 Other long term (current) drug therapy
CPT/HCPCS: 80048; 85025; 96361; 96374; 96375; 96376; 99284; J1170; J1642; J2405; J2550

== ENCOUNTER 2017-03-16 20:39 | Emergency (ER) | payer OTHER ==
[2017-03-16] MEDS ORDERED: PANTOPRAZOLE 40 MG VIAL IV ONE (21:55)
[2017-03-16 22:13] LABS: BASOPHILS 0.6 % (0.0-2.0); EOSINOPHILS 1.1 % (0.0-6.0); EOSINOPHILS# 0.1 X 10^3uL (0.0-0.4); HEMATOCRIT 36.3 % (36.0-48.0); HEMOGLOBIN 12.1 g/dL (12.0-16.0); LYMPHOCYTES 27.3 % (20.0-40.0); LYMPHOCYTES# 1.6 X 10^3uL (0.8-3.8); MEAN CELL VOLUME 81.7 fL (80.0-100.0); MEAN CORPUS. HGB CONCENTRATION 33.3 g/dL (32.0-36.0); MEAN CORPUSCULAR HEMOGLOBIN 27.2 pg (29.0-35.0); MEAN PLATELET VOLUME 7.7 fL (7.4-10.4); MONOCYTES 6.1 % (2.0-10.0); MONOCYTES# 0.3 X 10^3uL (0.2-1.0); NEUTROPHILS 64.9 % (54.0-75.0); NEUTROPHILS# 3.7 X 10^3uL (2.6-6.7); PLATELET COUNT 395 X 10^3uL (130-440); RED BLOOD COUNT 4.44 X 10^6uL (4.20-6.10); RED CELL DISTRIBUTION WIDTH 14.4 % (11.5-14.5); WHITE BLOOD COUNT 5.7 X 10^3uL (3.9-10.7)
[2017-03-16 22:15] LABS: A/G RATIO 1.2; ALKALINE PHOSPHATASE 85 U/L (38-126); ALT 35 U/L (9-52); AST 34 U/L (14-36); BILIRUBIN, TOTAL 0.5 mg/dL (0.2-1.3); BLOOD UREA NITROGEN 10 mg/dL (7-17); CALCIUM 9.4 mg/dL (8.4-10.2); CHLORIDE 100 mmol/L (98-107); EST GLOMERULAR FILTRATION RATE > 60 mL/min; LIPASE 48 U/L (23-300); POTASSIUM 3.8 mmol/L (3.5-5.1); SODIUM 134 mmol/L (137-145); TOTAL PROTEIN 7.3 g/dL (6.3-8.2)
[2017-03-16 22:16] LABS: C-REACTIVE PROTEIN < 5.0 mg/L (<10.0); GLUCOSE 278 mg/dL (70-100)
[2017-03-16 22:25] LABS: BETA HYDROXYBUTYRATE 0.28 mmol/L (<0.40)
--- NOTE | 2017-03-16 23:44 | ER NURSING DOCUMENTATION ---
Nurse's Notes [facility] Name:Ximena Frank Age:36 yrs Sex:Female :1980 Arrival Date:03/16/2017 Time:20:39 Bed4 Private MD: Diagnosis:Nausea - Vomiting (not ) Presentation: 03/16 20:58 Acuity: SUMI 2 tg 21:01 Presenting complaint: Patient states: ABD pain, nausea, dizzy, palpitations. Transition tg of care: patient was not received from another setting of care. 21:01 Method Of Arrival: Private Vehicle tg Triage Assessment: 21:55 General: Appears in no apparent distress, Behavior is cooperative. Pain: Complains of tg pain in right upper quadrant and left upper quadrant. Neuro: Level of Consciousness is awake, alert. Cardiovascular: Capillary refill < 3 seconds. GI: Abdomen is non- distended. Derm: Skin is pink, warm & dry. Historical: - Allergies: Singulair; Ampicillin; Toradol; Tramadol HCl; Ceftin; Plaquenil; Mobic; Lactulose; - Home Meds: 1. Ritalin Oral 2. tujeo 3. Humalog Sub-Q 4. Cymbalta oral 5. [place] Oral as needed for pain 6. 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 - Ebola Screening: : Patient negative for fever greater than or equal to 101.5 degrees Fahrenheit, and additional compatible Ebola Virus Disease symptoms. Patient denies exposure to infectious person. Patient denies travel to an Ebola-affected area in the 21 days before illness onset. No symptoms or risks identified at this time. . - Immunization history: Flu Vaccine unknown. - Social history: Smoking status: Patient states was never smoker of tobacco. Screenin:07 Infectious Disease Risk Unable to Obtain. Abuse screen: Denies threats or abuse. Denies tg injuries from another. Nutritional screening: No deficits noted. Assessment: 23:34 See Triage Assessment done by same RN. tg Vital Signs: 21:01 BP 121 / 80; Pulse 90; Resp 14; Temp 98.2(O); Pulse Ox 93% on R/A; Weight 61.23 kg (R); tg Height 5 ft. 1 in. (154.94 cm) (R); Pain 9/10; 23:13 BP 112 / 79; Pulse 87; Resp 14; Pulse Ox 92% ; em3 23:30 Pain 3/10; tg 21:01 Body Mass Index 25.51 (61.23 kg, 154.94 cm) ED Course: 20:58 Patient arrived in ED. tg 20:58 Triage completed. tg 21:01 Gagandeep Becker, MATEO is Primary Nurse. tg 21:04 Efrem Mcdonald MD is Attending Physician. be 21:07 Valuables Remains with patient. tg 21:44 Accessed Port-a-Cath using accessed w/ # 20 Munguia needle, sterile technique, per hospital protocol. Clean & dry. Good blood return. 22:30 Bertrand Yang MD is Referral Physician. be 23:32 Discontinued Port de-accessed with sterile technique. tg Administered Medications: 21:48 Drug: Phenergan 12.5 mg; Route: IVP; Site: left subclavian; tg 22:15 Follow up: Response: Nausea is decreased tg 21:50 Drug: Dilaudid 1 mg; Route: IVP; Site: left subclavian; tg 22:15 Follow up: Response: No adverse reaction; No change in condition tg 21:54 Drug: NS 0.9% 1000 ml; Route: IV; Rate: bolus; Site: left subclavian; Delivery: [place] tg Tubing; 22:30 Follow up: IV Status: Completed infusion; IV Intake: 1000ml tg 21:54 Drug: Protonix 40 mg; Route: IVPB; Site: left subclavian; Delivery: [place] Tubing; tg 22:15 Follow up: Response: No adverse reaction; IV Status: Completed infusion; IV Intake: 10mltg 22:20 Drug: Dilaudid 1 mg; Route: IVP; Site: left subclavian; tg 23:30 Follow up: Pain 3/10 Adult; Response: No adverse reaction; Pain is decreased tg 22:30 Drug: NS 0.9% 1000 ml; Route: IV; Rate: bolus; Site: left subclavian; Delivery: [place] tg Tubing; 23:30 Follow up: IV Status: Completed infusion; IV Intake: 1000ml tg 23:01 Drug: Phenergan 12.5 mg; Route: IVP; Site: left subclavian; tg 23:31 Follow up: Response: Nausea is decreased tg 23:14 Drug: Dilaudid 1 mg; Route: IVP; Site: left subclavian; tg 23:31 Follow up: Response: No adverse reaction; Pain is decreased tg 23:29 CANCELLED (wrong dose): heparin Flush 100 units IVP once lb 23:31 CANCELLED (Other Intervention Used): Zofran 8 mg IVP once over 2 mins tg 23:39 Drug: heparin Flush 500 units; Route: IVP; Site: left subclavian; lb 23:42 Follow up: Response: No adverse reaction lb Point of Care Testing: Blood Glucose: 21:17 Blood Glucose: 272 mg/dL; em3 Ranges: Intake: 22:15 IV: 10ml; Total: 10ml. tg 22:30 IV: 1000ml; Total: 1010ml. tg 23:30 IV: 1000ml; Total: 2010ml. tg Outcome: 22:31 Discharge ordered by . be 23:32 Discharged to home ambulatory, with family. tg 23:32 Condition: stable 23:32 Discharge Assessment: Patient awake and alert. 23:32 Instructed on discharge instructions, follow up and referral plans. 23:43 Patient left the ED. tg Signatures: Gagandeep Becker RN RN tg Efrem Mcdonald MD MD be Meiklejohn, Eric em3 Rachel Jones
--- NOTE | 2017-03-16 23:44 | ER PHYSICIAN DOCUMENTATION ---
Physician Documentation [facility] Name:Ximena Frank Age:36 yrs Sex:Female :1980 Arrival Date:03/16/2017 Time:20:39 Bed4 Private MD: Efrem Whitlock Disposition: 03/16/17 22:31 Discharged to Home/Self Care. Impression: Nausea - Vomiting (not ). - Condition is Good. - Discharge Instructions: [facility] - VOMITING (7y-Adult). - Medical Reconciliation form form. - Follow up: Bertrand Yang MD; When: As needed; Reason: Worsening of condition, Recheck today's complaints, Continuance of care. - Problem is chronic. - Symptoms have improved. HPI: 03/16 21:15 This 36 yrs old Female presents to ER via Private Vehicle with complaints of be nausea and vomiting. 21:15 The patient presents to the emergency department with nausea, with vomiting, with be associated abdominal pain. Onset: The symptom(s)/episode began/occurred today, and became persistent. Possible causes: poorly controlled DM. Severity of symptoms: At their worst the symptoms were moderate in the emergency department the symptoms are unchanged. The patient has experienced similar episodes in the past, chronically. Historical: - Allergies: Singulair; Ampicillin; Toradol; Tramadol HCl; Ceftin; Plaquenil; Mobic; Lactulose; - Home Meds: 1. Ritalin Oral 2. tujeo 3. Humalog Sub-Q 4. Cymbalta oral 5. [place] Oral as needed for pain 6. 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 - Ebola Screening: : Patient negative for fever greater than or equal to 101.5 degrees Fahrenheit, and additional compatible Ebola Virus Disease symptoms. Patient denies exposure to infectious person. Patient denies travel to an Ebola-affected area in the 21 days before illness onset. No symptoms or risks identified at this time. . - Immunization history: Flu Vaccine unknown. - Social history: Smoking status: Patient states was never smoker of tobacco. ROS: 21:16 Abdomen/GI: Positive for nausea, vomiting, Negative for abdominal pain, diarrhea. be 21:16 All other systems are negative. Exam: 21:16 Head/Face: Normocephalic, atraumatic. be Eyes: Pupils equal round and reactive to light, extra-ocular motions intact. Lids and lashes normal. Conjunctiva and sclera are non-icteric and not injected. Cornea within normal limits. Periorbital areas with no swelling, redness, or edema. Neck: Trachea midline, no thyromegaly or masses palpated, and no cervical lymphadenopathy. Supple, full range of motion without nuchal rigidity, or vertebral point tenderness. No Meningismus. Chest/axilla: Normal chest wall appearance and motion. Nontender with no deformity. No lesions are appreciated. Respiratory: Lungs have equal breath sounds bilaterally, clear to auscultation and percussion. No rales, rhonchi or wheezes noted. No increased work of breathing, no retractions or nasal flaring. Back: No spinal tenderness. No costovertebral tenderness. Full range of motion. 21:16 MS/ Extremity: Pulses equal, no cyanosis. Neurovascular intact. Full, normal range be of motion. 21:16 Constitutional: The patient appears in no acute distress, comfortable, non-diaphoretic, non-toxic, well developed, well hydrated, well groomed, well nourished. 21:16 Cardiovascular: Rate: normal, Rhythm: regular. 21:16 Abdomen/GI: Bowel sounds: active, Palpation: abdomen is soft and non-tender. 21:16 Skin: Turgor: is excellent. Vital Signs: 21:01 BP 121 / 80; Pulse 90; Resp 14; Temp 98.2(O); Pulse Ox 93% on R/A; Weight 61.23 kg (R); tg Height 5 ft. 1 in. (154.94 cm) (R); Pain 9/10; 23:13 BP 112 / 79; Pulse 87; Resp 14; Pulse Ox 92% ; em3 23:30 Pain 3/10; tg 21:01 Body Mass Index 25.51 (61.23 kg, 154.94 cm) tg MDM: 21:04 Patient medically screened. be 21:18 Differential diagnosis: Nonspecific abd pain, pancreatitis, KDA. Data reviewed: and as be a result, I will. 03/16 22:13 Order name: LACTATE; Complete Time: 22:28 EDMS 03/16 22:26 Interpretation: Normal. be 03/16 22:15 Order name: CBC AUTO DIF, MDIF/RMOR IF IND; Complete Time: 22:28 EDMS 03/16 22:26 Interpretation: Normal. be 03/16 22:17 Order name: COMPREHENSIVE METABOLIC PANEL; Complete Time: 22:28 EDMS 03/16 22:27 Interpretation: Abnormal: hyperglycemia and hyponatremia. be 03/16 22:17 Order name: LIPASE; Complete Time: 22:28 EDMS 03/16 22:27 Interpretation: Normal. be 03/16 22:17 Order name: C-REACTIVE PROTEIN; Complete Time: 22:28 EDMS 03/16 22:27 Interpretation: Normal. be 03/16 22:26 Order name: BETA HYDROXYBUTYRATE; Complete Time: 22:28 EDMS 03/16 22:28 Interpretation: Normal. be Dispensed Medications: 21:48 Drug: Phenergan 12.5 mg; Route: IVP; Site: left subclavian; tg 22:15 Follow up: Response: Nausea is decreased tg 21:50 Drug: Dilaudid 1 mg; Route: IVP; Site: left subclavian; tg 22:15 Follow up: Response: No adverse reaction; No change in condition tg 21:54 Drug: NS 0.9% 1000 ml; Route: IV; Rate: bolus; Site: left subclavian; Delivery: [place] tg Tubing; 22:30 Follow up: IV Status: Completed infusion; IV Intake: 1000ml tg 21:54 Drug: Protonix 40 mg; Route: IVPB; Site: left subclavian; Delivery: [place] Tubing; tg 22:15 Follow up: Response: No adverse reaction; IV Status: Completed infusion; IV Intake: 10mltg 22:20 Drug: Dilaudid 1 mg; Route: IVP; Site: left subclavian; tg 23:30 Follow up: Pain 3/10 Adult; Response: No adverse reaction; Pain is decreased tg 22:30 Drug: NS 0.9% 1000 ml; Route: IV; Rate: bolus; Site: left subclavian; Delivery: [place] tg Tubing; 23:30 Follow up: IV Status: Completed infusion; IV Intake: 1000ml tg 23:01 Drug: Phenergan 12.5 mg; Route: IVP; Site: left subclavian; tg 23:31 Follow up: Response: Nausea is decreased tg 23:14 Drug: Dilaudid 1 mg; Route: IVP; Site: left subclavian; tg 23:31 Follow up: Response: No adverse reaction; Pain is decreased tg 23:29 CANCELLED (wrong dose): heparin Flush 100 units IVP once lb 23:31 CANCELLED (Other Intervention Used): Zofran 8 mg IVP once over 2 mins tg 23:39 Drug: heparin Flush 500 units; Route: IVP; Site: left subclavian; lb 23:42 Follow up: Response: No adverse reaction lb Point of Care Testing: Blood Glucose: 21:17 Blood Glucose: 272 mg/dL; em3 Ranges: Critical Glucose Levels:Adult <50 mg/dl or >400 mg/dl <40 mg/dl or >180 mg/dl Signatures: Gagandeep Becker RN RN Efrem Mcdonald MD MD be Bollock, Lynda lb
== END 2017-03-16 23:43 | disposition home or self-care (01) ==
LOC: ER 20:39
DX: R11.2 Nausea with vomiting, unspecified (principal); R10.9 Unspecified abdominal pain; E10.65 Type 1 diabetes mellitus with hyperglycemia; E87.1 Hypo-osmolality and hyponatremia; M35.8 Other specified systemic involvement of connective tissue; Z79.899 Other long term (current) drug therapy
CPT/HCPCS: 80053; 82010; 83605; 83690; 85025; 86140; 96361; 96365; 96375; 96376; 99284; J1170; J2550